=== PATIENT | male | born 1955 | race Caucasian/White ===

== ENCOUNTER 2016-04-22 15:21 | Inpatient (IN) | payer OTHER ==
[~2016-04-22] VITALS: Ht 170.2 cm; Wt 120.2 kg
[2016-04-22 15:21] VITALS: BP 166/109
[~2016-04-22 15:21] MED LIST: ABILIFY10 MG PO; ABILIFY20 MG PO; ANDROGEL1.62% TP; ATARAX HCL25 MG PO; COUMADIN3 MG PO; DEPAKOTE PO; DEPAKOTE500 MG PO; ELIQUIS5 MG PO; LANOXIN0.125 MG PO; LIPITOR20 MG PO; LOPRESSOR100 MG PO; LOTENSIN10 MG PO; LOTENSIN5 MG PO; MIRAPEX0.5 MG PO; NORVASC10 MG PO; ORETIC25 MG PO; PLAVIX75 MG PO; SPIRONOLACTONE25 M1 PO; SYMBICORT1 AE1 IH; TRAZADONE HYDR100 MG PO; TRAZODONE100 M1 PO; VISTARIL50 MG/ML IM
--- NOTE | 2016-04-22 15:29 | NUR ---
[place] [employer] AT BEDSIDE
--- NOTE | 2016-04-22 15:30 | NUR ---
61M BIBA FROM HOME C/O 5150 HOLD X TODAY; PER EMS, PT HAD SUICIDAL THOUGHTS PRIOR TO ARRIVAL, AND FELT DEPRESSED; PT DENIES ANY THOUGHTS OF SUICIDAL IDEATION, HURTING SELF, OR OTHERS AT THIS TIME. [place] [employer] ON SCENE. HX: HTN, POLYCYSTIC KIDNEY DISEASE, PARKINSON'S STAGE II, A.FIB, PACEMAKER W/ STENT; DENIES N/V/D; SKIN IS PINK/WARM/DRY; AAOX4 WITH EVEN AND STEADY GAIT; LUNGS CLEAR BL; HR EVEN AND REGULAR; PT DENIES ANY FEVER, CP, SOB, OR COUGH AT THIS TIME; PATIENT STATES PAIN OF 0/10 AT THIS TIME; VSS; PATIENT POSITIONED FOR COMFORT; HOB ELEVATED; BEDRAILS UP X2; BED DOWN. ER MD MADE AWARE OF PT STATUS.
[2016-04-22] MEDS ORDERED: LOTENSIN40 MG PO (15:43)
[2016-04-22] MEDS ORDERED: LASIX20 MG PO (15:45)
--- NOTE | 2016-04-22 16:00 | NUR ---
DR ROGEL AT BEDSIDE ASSESSING AAO PT
[2016-04-22] MEDS ORDERED: METOPROLOL SUC100 M1 PO (16:12)
--- NOTE | 2016-04-22 16:15 | NUR ---
AAO TAKEN TO CT VIA WHEEL CHAIR BY TECH
[2016-04-22] MEDS ORDERED: AMIODARONE HCL100 MG PO (16:24)
[2016-04-22] MEDS ORDERED: SYMBICORT1 AE1 IH (16:24)
[2016-04-22] MEDS ORDERED: NITROSTAT0.4 M1 SL (16:24)
[2016-04-22] MEDS ORDERED: SINEMET 25/1001 TAB PO (16:24)
[2016-04-22] MEDS ORDERED: FLOVENT HF44 MCG/ACT INH (16:24)
[2016-04-22] MEDS ORDERED: CARDIZEM120 M2 PO (16:24)
[2016-04-22] MEDS ORDERED: LIPITOR20 MG PO (16:24)
[2016-04-22] MEDS ORDERED: ATIVAN0.5 MG PO (16:24)
--- NOTE | 2016-04-22 18:57 | NUR ---
SNACK PROVIDED TO ALERT COOPERATIVE PT
--- NOTE | 2016-04-22 19:12 | NUR ---
DR. ROGEL CLEARED PT. MEDICALLY
--- NOTE | 2016-04-22 19:13 | NUR ---
REPORT TO MARC LUCIA
[2016-04-22] MEDS ORDERED: LORazepam 2 MG/ML VIAL IVP PRN (19:35)
[2016-04-22] MEDS ORDERED: MORPHINE SULFATE 2 MG/ML SYR IVP PRN (19:35)
[2016-04-22] MEDS ORDERED: ONDANSETRON 4 MG/2 ML VIAL IVP PRN (19:35)
--- NOTE | 2016-04-22 19:49 | NUR ---
PSYCHOLOGIST DR. CONROY AT PATIENT BEDSIDE.
--- NOTE | 2016-04-22 20:45 | NUR ---
RECEIVED PT FROM ER VIA GURNEY ACCOMPANIED BY RN AND EMT. PT IS AWAKE, ALERT, ORIENTEDX4. ATTACHED TO INTERACTIVE VIDEO TECHNICIAN, PULSE OXIMETER. PACEMAKER AT LEFT UPPER CHEST WALL. PT VOIDED FREELY, 300ML CLEAR YELLOW URINE USING A URINAL. PT IS COOPERATIVE. NO SIGNS OF DISTRESS AT THIS TIME. PT DENIES KILLING OR HURTING HIMSELF OR OTHERS. NOTED TO HAVE (+1) PITTING EDEMA BOTH UPPER AND LOWER EXTREMITIES. SKIN IS INTACT AT THIS TIME. BED IN LOW POSITION. SAFETY MEASURE ENSURE. ON CLOSE OBSERVATION, ON 5150 HOLD. CALL LIGHT WITHIN REACH. WILL CONTINUE TO MONITOR.
--- NOTE | 2016-04-22 20:50 | NUR ---
PATIENT REPORT GIVEN TO ACT ENGLISH TUTOR CLARIZE.
[2016-04-22 20:55] VITALS: BP 140/82
--- NOTE | 2016-04-22 20:55 | NUR ---
Patient will be admitted to care of DR. STAPLES. Admited to ICU. Will go to room BED 3. Belongings list completed. Report to CLARIZE.
[2016-04-22] MEDS ORDERED: FLUTICASONE PROPIONATE 100 MCG/ACTUATION INH IH PRN (21:20)
--- NOTE | 2016-04-22 21:35 | NUR ---
PT REQUESTED FOR A SANDWICH, ESTHETICIAN MAKEUP ARTIST NOTIFIED AND PT PROVIDED WITH SANDWICH AND SNACKS. PT EATING AT THIS TIME.
[2016-04-22] MEDS ORDERED: COMMUNICATION ORDER MC PRN (21:45)
--- NOTE | 2016-04-22 21:50 | NUR ---
RECEIVED REPORT FROM ANTONIO TRAN. FULL CODE, ON PROSTHETIC AIDES TEACHER. AWAKE, ALERT, ORIENTEDX4. WITH PACEMAKER ON LEFT UPPER CHEST WALL. BOTH LOWER AND UPPER EXTREMITIES WITH PITTING EDEMA +1 BUT AMBULATORY. ABLE TO FED HIMSELF. SKIN INTACT. PERIPHERAL IV G22 ON RIGHT HAND FLUSHED AND INTACT. 5150 HOLD.
--- NOTE | 2016-04-22 21:50 | NUR ---
REPORT GIVEN TO MARC LUCIA FOR CONTINUITY OF CARE.
[2016-04-22 22:00] VITALS: BP 129/91
--- NOTE | 2016-04-22 22:00 | NUR ---
FOR NEPHRO CONSULT. DR. THOMPSON CAME IN, SEEN AND EXAMINED THE PATIENT AND TOOK HISTORY AT THE BEDSIDE.
[2016-04-22] MEDS ORDERED: LORazepam 0.5 MG TAB PO SCH (23:00)
[2016-04-23] VITALS (12 sets, daily range): BP systolic 114–179; BP diastolic 76–108
--- NOTE | 2016-04-23 00:10 | NUR ---
VITALLY STABLE. SLEEPING AT THIS TIME. CALL LIGHT AT BEDSIDE. CLOSE OBSERVATION. NO SIGNS OF DISTRESS AT THIS MOMENT.
--- NOTE | 2016-04-23 03:13 | NUR ---
REPOSITION PATIENT. NO RESPIRATORY DISTRESS AT THIS TIME. SLEEPING COMFORTABLY, VITALLY STABLE. BED IN LOW POSITION.
--- NOTE | 2016-04-23 04:23 | NUR ---
CAKE ICER AT THE BEDSIDE FOR MORNING LABS. PATIENT IS COOPERATIVE. SAFE ENVIRONMENT MAINTAINED. NO SUICIDAL IDEATION.
--- NOTE | 2016-04-23 05:08 | NUR ---
ASKED IF THE PATIENT WANTS TO BE CLEANED, PATIENT REFUSED AND VERBALIZED HE WANTED TO GO BACK TO SLEEP AT THIS TIME.
--- NOTE | 2016-04-23 07:11 | NUR ---
PATIENT REPORT GIVEN TO DAY SHIFT MARC MOHR FOR CONTINUITY OF CARE. VITALLY STABLE, NO SIGNS OF DISTRESS OR DISCOMFORT AT THIS TIME.
--- NOTE | 2016-04-23 07:15 | NUR ---
RECEIVED REPORT FROM MARC LUCIA. NO SIGNS OF ACUTE DISTRESS AT THIS TIME, NO C/O PAIN. PT IS AAOX4. PT IS ON ROOM AIR. PACEMAKER TO LEFT UPPER CHEST. IV TO RIGHT HAND #22 PATENT AND INTACT. SKIN IS INTACT. EDEMA NOTED TO BILATERAL LOWER EXTREMITIES, PITTING +1. SAFETY PRECAUTIONS IN PLACE WITH BED IN LOWEST POSITION AND SIDE RAILS UP, CALL LIGHT WITHIN REACH. PT IS CURRENTLY A FIB ON THE MONITOR, PACED. WILL CONTINUE TO MONITOR.
--- NOTE | 2016-04-23 07:49 | NUR ---
PT UP AND EATING BREAKFAST WITH NO ISSUES
[2016-04-23] MEDS: CARBIDOPA/LEVODOPA 25/100 MG 1 TAB PO SCH ×3 (08:05→16:28)
[2016-04-23] MEDS: AMIODARONE 200 MG TAB PO SCH (08:06)
[2016-04-23] MEDS: LORazepam 0.5 MG TAB PO SCH ×2 (08:06→21:12)
[2016-04-23] MEDS: ATORVASTATIN 20 MG TAB PO SCH (08:06)
[2016-04-23] MEDS: DIVALPROEX 500 MG TABEC PO SCH ×2 (08:06→21:11)
[2016-04-23] MEDS: FUROSEMIDE 20 MG TAB PO SCH (08:07)
[2016-04-23] MEDS: SPIRONOLACTONE 25 MG TAB PO SCH (08:07)
[2016-04-23] MEDS: BENAZEPRIL 20 MG TAB PO SCH (08:07)
[2016-04-23] MEDS: DILTIAZEM 120 MG CAPER PO SCH (08:08)
[2016-04-23] MEDS: ARIPiprazole 10 MG TAB PO SCH (08:12)
[2016-04-23] MEDS: METOPROLOL SUCCINATE 50 MG TABER PO SCH (08:13)
--- NOTE | 2016-04-23 08:14 | NUR ---
CHECKED BP: 150/102, HR: 78, POTASSIUM: 4.2. ADMINISTERED MEDICATION ORDERED. PT TOLERATED WELL.
--- NOTE | 2016-04-23 08:20 | NUR ---
LOVENOX NOT ADMINISTERED PT HAS PENDING ORDER FOR ELIQUIS. WILL CLARIFY WITH DR. STAPLES
--- NOTE | 2016-04-23 08:25 | NUR ---
RECEIVED CLARIFICATION REGARDING LOVENOX FROM DR. THOMPSON. PER DR. THOMPSON, CONTINUE ELIQUIS AND START PT ON SCD'S.
--- NOTE | 2016-04-23 08:32 | NUR ---
PT HAD LARGE BOWEL MOVEMENT USING BEDSIDE COMMODE. SOFT AND BROWN IN COLOR. PROVIDED HYGIENE CARE. CALL LIGHT WITHIN REACH.
[2016-04-23] MEDS: APIXABAN 2.5 MG TAB PO SCH ×2 (08:51→21:14)
[2016-04-23] MEDS ORDERED: ENOXAPARIN 30 MG/0.3 ML SYR SUBQ SCH (09:00)
--- NOTE | 2016-04-23 10:19 | NUR ---
CHECKED ON PT. RESTING AT THIS TIME, AROUSABLE. CALL LIGHT WITHIN REACH
--- NOTE | 2016-04-23 11:14 | NUR ---
PT TOLERATED MEDS WELL.
--- NOTE | 2016-04-23 11:23 | NUR ---
RECEIVED REPORT FROM MARC JON. AWAITING ARRIVAL OF PT TO UNIT.
--- NOTE | 2016-04-23 12:01 | NUR ---
PT HAD 400 ML OF CLEAR YELLOW URINE OUTPUT
--- NOTE | 2016-04-23 12:29 | NUR ---
DR. STAPLES IN TO SEE PT. WILL FOLLOW UP ON ORDERS.
--- NOTE | 2016-04-23 13:30 | NUR ---
RECEIVED A PHONE CALL FROM A CASE MANAGEMENT NAME ANGELA FROM [facility],HER PHONE # [phone]. FAXED THE PATIENT'S INFORMATION TO ANGELA Betts # [phone] PER HER REQUESTED. SHE WILL TRY TO FIND THE INTAKE PSYCH FACILITY FOR THE PATIENT.
--- NOTE | 2016-04-23 14:05 | NUR ---
CHECKED ON PT. RESTING AT THIS TIME, AROUSABLE. CALL LIGHT WITHIN REACH.
--- NOTE | 2016-04-23 15:20 | NUR ---
RECEIVED A CALL FROM ANGELA Betts OF [facility],WHICH SHE STATES THAT SHE TRIED TO GET A BED FOR THE PATIENT AT [facility],BUT THEY DO NOT HAVE A BED TODAY. PATIENT WAS INFORMED.
--- NOTE | 2016-04-23 15:21 | NUR ---
CHECKED ON PT. ALL NEEDS MET AT THIS TIME. CALL LIGHT WITHIN REACH.
--- NOTE | 2016-04-23 15:44 | NUR ---
RECHECKED BP: 112/49. WILL CONTINUE TO MONITOR. Addendum: 04/23/16 at 1607 by Kaitlin Walls RN CHARTED ON WRONG PT
--- NOTE | 2016-04-23 16:07 | NUR ---
PT HAD 450 ML OF CLEAR YELLOW URINE OUTPUT
--- NOTE | 2016-04-23 16:29 | NUR ---
PT TOLERATED MEDS WELL
--- NOTE | 2016-04-23 16:30 | NUR ---
CALLED [facility] # [phone] FOR INTAKE PSYCH ADMISSION AND SPOKE TO MARIAMA ,WHICH SHE STATES THAT THERE IS NO BED TODAY.
--- NOTE | 2016-04-23 16:45 | NUR ---
CALLED [facility] FOR A BED. SPOKE TO THE EMBLEM CUTTER WHICH SHE SAID THAT THERE IS NO BED. PATIENT WAS INFORMED ABOUT THAT WE ARE UNABLE TO FIND THE BED FOR HIM TODAY AND WE WILL TRY AGAIN TOMORROW.
--- NOTE | 2016-04-23 18:07 | NUR ---
PT UP AND EATING DINNER WITH NO ISSUES.
--- NOTE | 2016-04-23 19:23 | NUR ---
ENDORSED CARE TO MARC LUCIA. PT IN STABLE CONDITION.
--- NOTE | 2016-04-23 19:23 | NUR ---
RECEIVED PATIENT REPORT FROM DAY SHIFT RN FANI. FULL CODE, ON FORGING PRESS LEVER TENDER, ON ROOM AIR. PATIENT SLEEPING AT THIS TIME BUT EASILY AROUSABLE. NOT ON RESPIRATORY DISTRESS OR DISCOMFORT AT THIS TIME. PERIPHERAL IV G22 ON RIGHT HAND SALINE LOCK. SCD ON BOTH LEGS. PITTING EDEMA +1 BLE. BED IN LOW POSITION. SUICIDAL PRECAUTION.
--- NOTE | 2016-04-23 21:00 | NUR ---
PATIENT REQUESTED FOR SNACK. FOOD TOLERATED, NO N/V NOTED.
[2016-04-23] MEDS: traZODone 50 MG TAB PO SCH (21:12)
--- NOTE | 2016-04-23 22:27 | NUR ---
PATIENT SLEEPING COMFORTABLY, NO SIGNS OF DISTRESS OR DISCOMFORT AT THIS TIME. SUICIDE PRECAUTION. TURNS ON BED BY HIMSELF.
--- NOTE | 2016-04-23 22:50 | NUR ---
SEEN BY DR. THOMPSON AT BEDSIDE. LABS AND VS REVIEWED. INFORMED THAT PATIENT MIGHT BE TRANSFERRED TO [facility] ONCE BED IS AVAILABLE. NO ORDERS MADE.
--- NOTE | 2016-04-23 23:59 | NUR ---
PATIENT SLEEPING, NO SIGNS OF RESPIRATORY DISTRESS OR DISCOMFORT AT THIS TIME. SUICIDE PRECAUTION. PATIENT TURNS BY HIMSELF ON BED.
[2016-04-24] VITALS (11 sets, daily range): BP systolic 113–152; BP diastolic 68–96
--- NOTE | 2016-04-24 02:16 | NUR ---
EASILY AROUSABLE TO VOICE. SLEEPING AT THIS TIME. REPOSITIONED PATIENT. SUICIDE PRECAUTION.
--- NOTE | 2016-04-24 03:29 | NUR ---
PATIENT HAD HIS MORNING CARE DONE HIMSELF WITH SPONGE BATH. BRUSHED HIS TEETH. ALL LINENS, GOWN, SOCKS CHANGED. MORNING CARE TOLERATED. NO SIGNS OF DISTRESS OR DISCOMFORT NOTED. HE READ THE PATIENT'S INSTRUCTIONS PROVIDED.
--- NOTE | 2016-04-24 06:00 | NUR ---
PATIENT ASKED FOR CRACKERS AND JUICE. FED HIMSELF TOLERATED. NO N/V NOTED.
--- NOTE | 2016-04-24 07:20 | NUR ---
PATIENT REPORT GIVEN TO DAY SHIFT RN DONNA FOR CONTINUITY OF CARE.
[2016-04-24] MEDS ORDERED: PROBIOTIC SCREEN 1 EA MISC MC PRN (07:35)
[2016-04-24] MEDS: CARBIDOPA/LEVODOPA 25/100 MG 1 TAB PO SCH ×3 (07:57→17:04)
--- NOTE | 2016-04-24 08:00 | NUR ---
INITIAL SHIFT ASSESSMENT DONE. AAOX4. NO C/O PAIN OR DYSPNEA. O2 SAT 91-95% ON ROOM AIR. 100% PACED ON MONITOR. SBP IN 120'S-140'S. HOB ELEVATED. GIVEN BREAKFAST TRAY. UPDATED OF PLAN OF CARE. WILL CONTINUE TO MONITOR.
[2016-04-24] MEDS: ARIPiprazole 10 MG TAB PO SCH (08:46)
[2016-04-24] MEDS: SPIRONOLACTONE 25 MG TAB PO SCH (08:47)
[2016-04-24] MEDS: DIVALPROEX 500 MG TABEC PO SCH ×2 (08:47→20:50)
[2016-04-24] MEDS: LORazepam 0.5 MG TAB PO SCH ×2 (08:48→20:51)
[2016-04-24] MEDS: BENAZEPRIL 20 MG TAB PO SCH (08:48)
[2016-04-24] MEDS: AMIODARONE 200 MG TAB PO SCH (08:48)
[2016-04-24] MEDS: ATORVASTATIN 20 MG TAB PO SCH (08:48)
[2016-04-24] MEDS: FUROSEMIDE 20 MG TAB PO SCH (08:49)
[2016-04-24] MEDS: METOPROLOL SUCCINATE 50 MG TABER PO SCH (08:49)
[2016-04-24] MEDS: APIXABAN 2.5 MG TAB PO SCH ×2 (08:51→20:56)
[2016-04-24] MEDS: DILTIAZEM 120 MG CAPER PO SCH (08:53)
[2016-04-24] MEDS ORDERED: DIGOXIN 0.125 MG TAB PO SCH (09:00)
--- NOTE | 2016-04-24 09:08 | NUR ---
PATIENT HAS BEEN SCREENED AND CATEGORIZED HIGH NUTRITION RISK. PATIENT WILL BE SEEN WITHIN 1-2 DAYS OF ADMISSION. 04/23/16-04/24/[address]
--- NOTE | 2016-04-24 10:00 | NUR ---
SLEEPING AT THIS TIME BUT EASILY AROUSABLE. NO C/O PAIN OR DYSPNEA. O2 SAT 91-95% ON ROOM AIR. 100% PACED ON MONITOR. SBP IN 120'S-150. HOB ELEVATED. WILL CONTINUE TO MONITOR.
--- NOTE | 2016-04-24 10:07 | NUR ---
SS NOTE: SENT PSYCH PLACEMENT INQUIRIES TO: - [facility] - [facility]
--- NOTE | 2016-04-24 10:32 | NUR ---
CM NOTE INITIAL REVIEW [facility] / FAX# [phone], ATTN: MAISHA #[phone]
--- NOTE | 2016-04-24 12:00 | NUR ---
REASSESSMENT DONE. AAOX4. NO C/O PAIN OR DYSPNEA. O2 SAT 92-96% ON ROOM AIR. 100% PACED ON MONITOR. SBP IN 120'S-140'S. SITTING ON THE EDGE OF THE BED AT THIS TIME. GIVEN LUNCH TRAY. UPDATED OF PLAN OF CARE. WILL CONTINUE TO MONITOR.
--- NOTE | 2016-04-24 14:00 | NUR ---
RESTING IN BED. NO C/O PAIN OR DYSPNEA. O2 SAT 92-96% ON ROOM AIR. 100% PACED ON MONITOR. SBP IN 140'S-150'S. NO ECTOPY NOTED. HOB ELEVATED. WILL CONTINUE TO MONITOR.
--- NOTE | 2016-04-24 14:15 | NUR ---
04/24/16 RD INITIAL ASSESSMENT COMPLETED PLEASE REFER TO NUTRITION ASSESSMENT UNDER CARE ACTIVITY FOR ESTIMATED NUTRITIONAL NEEDS. RD RECOMMENDATIONS: 1. RECOMMEND RENAL DIET D/T PT WITH PMH OF CKD AND ELEVATED BUN AND CREATININE LEVELS. --NOTE PT IS MEETING 100% OF PT ESTIMATED KCAL AND PROTEIN NEEDS WITH AN AVG PO INTAKE OF 100%. --NOTE RD SPOKE WITH RN ABOUT CHANGING TO RENAL DIET, RN ACKNOWLEDGED. 2. RD WILL F/U 7 DAYS; LOW RISK. DIALLO DRUMMOND, RD
--- NOTE | 2016-04-24 14:16 | NUR ---
SS NOTE: I SPOKE WITH KEN FROM [facility] AND SHE REQUESTED THAT PT'S INFORMATION BE RESENT. I RESENT THE INFORMATION, RECEIVED FAX CONFIRMATION. PER ANN FROM [facility], NO ADULT BEDS AVAILABLE PER MANDI FROM [facility], PT WAS DECLINED DUE TO HIGH MEDICAL ACUITY PER YANNICK FROM [facility], PT'S INFORMATION IS PENDING REVIEW BUT THEY DO NOT HAVE ANY BEDS AVAILABLE AT THIS TIME. Addendum: 04/24/16 at 1420 by Violeta Walls SS PER AYE FROM [facility], NO BEDS AVAILABLE
--- NOTE | 2016-04-24 14:33 | NUR ---
CM NOTE PER NARAYAN FERRERA FOR [facility], PSYCH CARVE-OUT TO [facility] #[phone]. TRANSPORT IS CARVED-OUT TO [facility].
--- NOTE | 2016-04-24 14:34 | NUR ---
SS NOTE: I SPOKE TO ERMA FROM [facility] ([phone]) AND SHE REQUESTED THAT PT'S INFORMATION BE SENT TO [phone] SO THAT THEY CAN WORK ON PSYCH PLACEMENT. THE REQUESTED INFORMATION WAS SENT, RECEIVED FAX CONFIRMATION. Addendum: 04/24/16 at 1446 by Violeta Walls SS CORRECT FAX NUMBER: [phone]
--- NOTE | 2016-04-24 15:27 | NUR ---
SS NOTE: PER ANNELISE FROM [facility], THEY ARE UNABLE TO ACCEPT PT DUE TO HIGH MEDICAL ACUITY.
--- NOTE | 2016-04-24 15:43 | NUR ---
SS NOTE: PER RANDALL FROM [facility], THEY DO NOT MANAGE THIS PT FOR [facility]. HE RECOMMENDED THAT STEWART LERNER CM OF BEHAVIOR HEALTH AT [facility] BE CONTACTED FOR PLACEMENT. MESSAGE LEFT FOR STEWART LERNER ([phone]) REGARDING PSYCH PLACEMENT FOR PT
--- NOTE | 2016-04-24 16:00 | NUR ---
REASSESSMENT DONE. AAOX4. NO C/O PAIN OR DYSPNEA. O2 SAT 92-98% ON ROOM AIR. 100% PACED ON MONITOR. SBP IN 120'S-140'S. NO ECTOPY NOTED. HOB ELEVATED. UPDATED OF PLAN OF CARE. WILL CONTINUE TO MONITOR.
--- NOTE | 2016-04-24 17:40 | NUR ---
SITTING ON TH EDGE OF THE BED. GIVEN DINNER TRAY.
--- NOTE | 2016-04-24 18:10 | NUR ---
RESTING IN BED, WATCHING TV. NO C/O PAIN OR DYSPNEA. O2 SAT 94-96% ON ROOM AIR. 100% PACED ON MONITOR. SBP IN 130'S-140'S. NO ECTOPY NOTED. HOB ELEVATED. WILL CONTINUE TO MONITOR.
--- NOTE | 2016-04-24 19:00 | NUR ---
REPORT GIVEN TO INCOMING CREEL HAND RN, RN JANN.
--- NOTE | 2016-04-24 19:10 | NUR ---
RECEIVED REPORT FROM DONNA TRAN. PATIENT IS SLEEPING IN BED, WITH BREATHING AND UNLABORED. PATIENT CAN BE AROUSED BY NAME. BREATH SOUNDS ARE CLEAR UPON AUSCULTATION AND THERE ARE ACTIVE BOWEL SOUNDS. THERE IS A #22 IN THE RIGHT HAND SALINE LOCKED. SITE IS DRY AND INTACT. VITAL SIGNS ARE WNL WITH NO REPORTS OF PAIN OR DISCOMFORT AT THIS TIME. INITIAL ASSESSMENT COMPLETED. HOB AT 30 DEGREES WITH BED IN LOW POSITION. CONTINUE TO MONITOR PATIENT.
--- NOTE | 2016-04-24 20:22 | NUR ---
PATIENT REQUESTED CRACKERS AND JUICE. PROVIDED PATIENT WITH 1 PACKET OF KALIN CRACKERS AND 1 BOX OF APPLE JUICE. PATIENT HAS GOOD APPETITE AND TOLERATED WELL. CONTINUE TO MONITOR.
[2016-04-24] MEDS: traZODone 50 MG TAB PO SCH (20:51)
--- NOTE | 2016-04-24 20:57 | NUR ---
TOLERATED SCHEDULED MEDICATION ADMINISTRATION. NO SIGNS OF SOB NOTED. PATIENT'S NEEDS MET AT THIS TIME. CONTINUE TO MONITOR PATIENT. Addendum: 04/24/16 at 2249 by Ciera Bojorquez RN EXPLAINED INDICATIONS AND BENEFITS OF SCDS FOR VTE PROPHYLAXIS TO PATIENT. PATIENT REQUESTED TO NOT WEAR SCDS AT THIS TIME AND SAID IT WOULD BE OK TO REAPPLY IN THE MORNING.
--- NOTE | 2016-04-24 22:49 | NUR ---
PATIENT SLEEPING IN BED. NO SIGNS OF SOB NOTED. HOB AT 30 DEGREES WITH BED IN LOW POSITION. CONTINUE TO MONITOR PATIENT.
[2016-04-25] VITALS: BP 124/85
--- NOTE | 2016-04-25 01:25 | NUR ---
PATIENT VOIDED IN URINAL. 550ML OF CLEAR YELLOW URINE OUTPUT NOTED. CONTINUE TO MONITOR.
--- NOTE | 2016-04-25 01:28 | NUR ---
PATIENT REQUESTED SNACK. PROVIDED 1 PACK OF KALIN CRACKERS AND 1 BOX OF ORANGE JUICE. CONTINUE TO MONITOR PATIENT.
--- NOTE | 2016-04-25 01:39 | NUR ---
PATIENT REQUESTED BLANKET. FOLLOWED UP WITH PATIENT'S REQUEST. PATIENT'S NEEDS MET AT THIS TIME. CONTINUE TO MONITOR.
[2016-04-25 04:00] VITALS: BP 131/78
--- NOTE | 2016-04-25 04:14 | NUR ---
PATIENT SLEEPING IN BED. BREATHING IS EVEN AND UNLABORED. CONTINUE TO MONITOR.
--- NOTE | 2016-04-25 04:29 | NUR ---
HEAD CHARRER AT BEDSIDE FOR SCHEDULED LAB DRAWS.
--- NOTE | 2016-04-25 06:46 | NUR ---
PATIENT REQUESTED URINAL TO VOID. OUTPUT OF 300 ML OF CLEAR YELLOW URINE NOTED. PATIENT REQUESTED SNACK. PROVIDED 1 PACKET OF KALIN CRACKERS AND 1 BOX OF CRANBERRY JUICE. PATIENT'S NEEDS MET AT THIS TIME. CONTINUE TO MONITOR PATIENT.
--- NOTE | 2016-04-25 06:52 | NUR ---
PATIENT REQUESTED SUPPLIES TO PERFORM SELF MORNING CARE. PATIENT ABLE TO PERFORM SELF CARE. NO SIGNS OF SOB OR DISTRESS NOTED. CONTINUE TO MONITOR.
--- NOTE | 2016-04-25 07:15 | NUR ---
PATIENT RESTING IN BED WATCHING TV AND IS STABLE. ALL NEEDS ATTENDED TO DURING SHIFT. ENDORSED CONTINUITY OF CARE TO REECE TRAN.
--- NOTE | 2016-04-25 07:20 | NUR ---
received patient on bed.initial assessment done to patient .no co pain nor any discomfort. right hand 22 gauge .no signs of infiltration.paced rhythm.no suicidal ideation.will monitor.
[2016-04-25 08:00] VITALS: BP 135/73
[2016-04-25] MEDS: CARBIDOPA/LEVODOPA 25/100 MG 1 TAB PO SCH ×3 (08:20→16:16)
[2016-04-25] MEDS: APIXABAN 2.5 MG TAB PO SCH (08:20)
[2016-04-25] MEDS: DIVALPROEX 500 MG TABEC PO SCH (08:21)
[2016-04-25] MEDS: FUROSEMIDE 20 MG TAB PO SCH (08:21)
[2016-04-25] MEDS: ATORVASTATIN 20 MG TAB PO SCH (08:21)
[2016-04-25] MEDS: SPIRONOLACTONE 25 MG TAB PO SCH (08:22)
[2016-04-25] MEDS: BENAZEPRIL 20 MG TAB PO SCH (08:22)
[2016-04-25] MEDS: LORazepam 0.5 MG TAB PO SCH (08:22)
[2016-04-25] MEDS: AMIODARONE 200 MG TAB PO SCH (08:23)
[2016-04-25] MEDS: ARIPiprazole 10 MG TAB PO SCH (08:24)
[2016-04-25] MEDS: METOPROLOL SUCCINATE 50 MG TABER PO SCH (08:25)
[2016-04-25] MEDS: DILTIAZEM 120 MG CAPER PO SCH (08:38)
--- NOTE | 2016-04-25 09:45 | NUR ---
SS NOTE: RECEIVED A MESSAGE FROM STEWART LERNER AT [facility] AND SHE STATED THAT [facility] IS RESPONSIBLE FOR PT'S PSYCH PLACEMENT I SPOKE WITH YAIR VICK ([phone]) FROM [facility] BEH[facility]IORAL [facility] DEPT. AND HE STATED THAT HE WILL SEND OVER A LIST OF [facility] CONTRACTED PSYCH FACILITIES.
--- NOTE | 2016-04-25 10:30 | NUR ---
PER PT., HIS HOLD WILL IN A FEW HOURS AND THAT HE PREFERS TO GO HOME INSTEAD OF GOING TO A PSYCH.HOSPITAL. DR. STAPLES AWARE. MESSAGE LEFT WITH DR. BENEDICT TO RE EVAL. PT.
[2016-04-25 12:00] VITALS: BP 106/46
--- NOTE | 2016-04-25 13:06 | NUR ---
left a message to dr edwards regarding reevaluation .also faxed face sheet.
[2016-04-25 16:00] VITALS: BP 118/76
--- NOTE | 2016-04-25 16:15 | NUR ---
DR. WHITNEY HERE TO SEE AND EXAMINE PT.
--- NOTE | 2016-04-25 16:40 | NUR ---
PER DR. WHITNEY PT IS OFF 4250 AND IS CLEAR TO BE DC TO HOME. DR. STAPLES PAGED THROUGH HIS OFFICE.
--- NOTE | 2016-04-25 17:00 | NUR ---
HEP LOCK ON RT HAND DC'D.
--- NOTE | 2016-04-25 17:10 | NUR ---
DISCHARGE INSTRUCTIONS GIVEN. PT. STATES HE JUST LEAVES NEARBY, CAN WALK HOME. HE DOES NOT NEED ANYBODY TO DRIVE HIM. DISCHARGED HOME. AMBULATORY. GAIT. STEADY. DENIES ANY DIZZINESS/DISCOMFORTS.
== END 2016-04-25 17:10 | disposition designated cancer center or children's hospital (05) | DRG 885 ==
LOC: MED 15:21 → MIC 19:41
PROVIDERS: ADMIT Internal Medicine Pulmonary Disease; ATTEND Internal Medicine Pulmonary Disease
DX: F31.5 Bipolar disorder, current episode depressed, severe, with psychotic features (principal); Q61.3 Polycystic kidney, unspecified; R45.851 Suicidal ideations; Z87.81 Personal history of (healed) traumatic fracture; I48.91 Unspecified atrial fibrillation; G20 Parkinson's disease; J45.909 Unspecified asthma, uncomplicated; Z98.61 Coronary angioplasty status; Z79.01 Long term (current) use of anticoagulants; Z95.0 Presence of cardiac pacemaker; E78.5 Hyperlipidemia, unspecified; N18.3 Chronic kidney disease, stage 3 (moderate); I25.10 Atherosclerotic heart disease of native coronary artery without angina pectoris; Z82.49 Family history of ischemic heart disease and other diseases of the circulatory system; Z79.899 Other long term (current) drug therapy; I12.9 Hypertensive chronic kidney disease with stage 1 through stage 4 chronic kidney disease, or unspecified chronic kidney disease

== ENCOUNTER 2016-05-28 11:51 | Inpatient (IN) | payer OTHER ==
[~2016-05-28] VITALS: Ht 170.2 cm; Wt 117.9 kg
[~2016-05-28 11:51] MED LIST changes: +AMIODARONE HCL100 MG PO; +ATIVAN0.5 MG PO; +CARDIZEM120 M2 PO; +FLOVENT HF44 MCG/ACT INH; +LASIX20 MG PO; +LOTENSIN40 MG PO; +METOPROLOL SUC100 M1 PO; +NITROSTAT0.4 M1 SL; +SINEMET 25/1001 TAB PO
[2016-05-28 11:57] VITALS: BP 110/69
[2016-05-28] MEDS ORDERED: ALBUTEROL SULFATE/IPRATROPIU 3 ML SOL IH ONE ×3 (12:05→14:05)
--- NOTE | 2016-05-28 12:06 | NUR ---
TO RADIOLOGY VIA WHEEL CHAIR
--- NOTE | 2016-05-28 12:43 | NUR ---
61/M TO ED WITH C/O COUGH X5 DAYS. DRY NON PRODUCTIVE COUGH. DENIES N/V/D. WHEEZES HEARD BILAT UPON INSP. AND EXP. DENIES PAIN. AAOX4. VSS. NO SIGNS OF DISTRESS.
[2016-05-28] MEDS ORDERED: cefTRIAXone 1,000 MG VIAL ONE (13:05)
--- NOTE | 2016-05-28 14:05 | NUR ---
Patient appears to be resting comfortably in bed. Vital Signs within normal limits. Respirations even and unlabored.
[2016-05-28] MEDS ORDERED: MORPHINE SULFATE 2 MG/ML SYR IVP PRN (14:30)
[2016-05-28] MEDS ORDERED: HYDROcodone/APAP 7.5/325 MG 1 TAB PO PRN (14:30)
[2016-05-28] MEDS ORDERED: ONDANSETRON 4 MG/2 ML VIAL IVP PRN (14:30)
[2016-05-28] MEDS ORDERED: methylPREDNISolone SS 40 MG in WATER STERILE 1 ML IV SCH (14:45)
[2016-05-28] MEDS ORDERED: ALBUTEROL SULFATE/IPRATROPIU 3 ML SOL IH PRN (14:45)
[2016-05-28] MEDS ORDERED: ACETAMINOPHEN 325 MG TAB PO PRN (14:50)
--- NOTE | 2016-05-28 14:58 | NUR ---
Patient will be admitted to care of DR SANTOS. Admited to TELE. Will go to room 110A. Belongings list completed. Report to MARC FAIR.
[2016-05-28] MEDS ORDERED: methylPREDNISolone SS 125 MG/2 ML VIAL IVP SCH (15:00)
[2016-05-28 15:15] VITALS: BP 132/65
--- NOTE | 2016-05-28 15:15 | NUR ---
Admitted from ER, with chief complaint of COUGH, DX ACUTE ASTHMATIC BRONCHITIS. 61 y/o , Male, Cooperative, AOX4, PT ON HIGH FOWLERS, ABLE TO VERBALIZE NEEDS, ABLE TO AMBULATE WITH ASSIST. PT ON CEMENT PAVER, PACEMAKER NOTED. ON 4L NC. PT TACHYPNIC, PT STATES SLIGHT SHORTNESS OF BREATH. O2 SAT 95%. BLE EDEMA NOTED. FEVER NOTED, COOLING MEASURES IN PLACE, WILL ADMINISTER APAP ORDERED. IV ACCESS ASYMPTOMATIC, PATENT AND INTACT. IVF INFUSING WELL. REVIEWED AND DISCUSSED PLAN OF CARE WITH PT. PT VERBALIZES UNDERSTANDING. SAFETY MEASURES IN PLACE. CALL LIGHT WITHIN REACH. oriented to call light, bed, phone,television, bathroom, smoking policy, visiting hours, procedures, ID bracelet on. Belongings list checked.
[2016-05-28] MEDS: NACL 0.9% 1,000 ML IV SCH (15:50)
[2016-05-28] MEDS ORDERED: LEVOFLOXACIN 750 MG/D5W PREMIX 150 ML IV SCH (16:00)
[2016-05-28] MEDS ORDERED: DILTIAZEM 30 MG TAB PO SCH (16:25)
[2016-05-28] MEDS ORDERED: guaiFENesin DM 200/20 MG-10 ML 10 ML UDC PO PRN (16:35)
[2016-05-28] MEDS: CARBIDOPA/LEVODOPA 25/100 MG 1 TAB PO SCH (17:52)
[2016-05-28] MEDS: PIPERACILLIN/TAZOBACTAM 3.375 GM in DEXTROSE 5% 50 ML IV SCH (18:00)
[2016-05-28] MEDS ORDERED: PIPERACILLIN/TAZOBACTAM 3.375 GM VIAL IV ONE (18:22)
--- NOTE | 2016-05-28 18:24 | NUR ---
[facility] CALLED REGARDING PACEMAKER. SHARAN WILL BE PAGED AND IN CONTACT REGARDING INTERROGATION.
--- NOTE | 2016-05-28 19:21 | NUR ---
ENDORSED PLAN OF CARE TO NIGHT NURSE. CONDITION STABLE.
--- NOTE | 2016-05-28 19:22 | NUR ---
RECEIVED PT IN STABLE CONDITION FROM MARC FAIR. NO SOB, NO SIGNS OF DISTRESS. HR TACHY, OTHER VS WNL. PT IS AOX4, AMBULATES WITH ASSIST. PT ON 4L O2 NC. IV TO RT AC 22G INTACT, INFILTRATED. DC IV, WILL START NEW IV. SKIN IS INTACT, PT DENIES PAIN OR SOB AT THIS TIME. EDUCATED PT THAT WE NEED SPUTUM AND URINE SAMPLES, PT VERBALIZED UNDERSTANDING. PLAN OF CARE DISCUSSED WITH PT. SAFETY MEASURES IN PLACE. CALL LIGHT WITHIN REACH. WILL CONTINUE TO MONITOR.
[2016-05-28] MEDS: ALBUTEROL SULFATE/IPRATROPIU 3 ML SOL IH SCH (19:23)
[2016-05-28] MEDS: BUDESONIDE 0.25 MG/2 ML NEBU INH SCH (19:23)
[2016-05-28 20:00] VITALS: BP 126/71
[2016-05-28] MEDS: DIVALPROEX 500 MG TABEC PO SCH (20:31)
[2016-05-28] MEDS: traZODone 50 MG TAB PO SCH (20:31)
[2016-05-28] MEDS: ATORVASTATIN 20 MG TAB PO SCH (20:31)
--- NOTE | 2016-05-28 20:31 | NUR ---
PT TOLERATED DUE MEDS WELL. NO SOB, NO SIGNS OF DISTRESS. PT ON 4L O2 NC. PT DENIES PAIN AT THIS TIME. PLAN OF CARE DISCUSSED WITH PT. SAFETY MEASURES IN PLACE. CALL LIGHT WITHIN REACH. WILL CONTINUE TO MONITOR.
[2016-05-28] MEDS: APIXABAN 2.5 MG TAB PO SCH (20:32)
--- NOTE | 2016-05-28 20:57 | NUR ---
1999 sputum was collected by rn and taken to lab
--- NOTE | 2016-05-28 23:45 | NUR ---
STARTED NEW IV TO LT HAND 22G PATENT, ASYMPTOMATIC, INTACT, IVF RUNNING. PT TOLERATED WELL. VS STABLE. NO SOB, NO SIGNS OF DISTRESS. PT ON 4L O2 NC. PT DENIES PAIN AT THIS TIME. PLAN OF CARE DISCUSSED WITH PT. SAFETY MEASURES IN PLACE. CALL LIGHT WITHIN REACH. WILL CONTINUE TO MONITOR.
[2016-05-29] VITALS: BP 112/65
[2016-05-29] MEDS: ALBUTEROL SULFATE/IPRATROPIU 3 ML SOL IH SCH ×4 (00:06→19:00)
[2016-05-29] MEDS ORDERED: PIPERACILLIN/TAZOBACTAM 3.375 GM VIAL IV ONE ×2 (00:20→05:02)
[2016-05-29] MEDS: PIPERACILLIN/TAZOBACTAM 3.375 GM in DEXTROSE 5% 50 ML IV SCH ×2 (00:39→05:04)
--- NOTE | 2016-05-29 02:20 | NUR ---
PT ASLEEP. NO SOB, NO SIGNS OF DISTRESS. PT ON 4L O2 NC. IV SITE ASYMPTOMATIC, INTACT, PATENT, IVF RUNNING. SAFETY MEASURES IN PLACE. CALL LIGHT WITHIN REACH. WILL CONTINUE TO MONITOR.
[2016-05-29 04:00] VITALS: BP 92/58
--- NOTE | 2016-05-29 04:16 | NUR ---
VS STABLE. NO SOB, NO SIGNS OF DISTRESS. PT ON 4L O2 NC. PT DENIES PAIN AT THIS TIME. IV SITE ASYMPTOMATIC, INTACT, PATENT, IVF RUNNING. PLAN OF CARE DISCUSSED WITH PT. SAFETY MEASURES IN PLACE. CALL LIGHT WITHIN REACH. WILL CONTINUE TO MONITOR.
--- NOTE | 2016-05-29 05:00 | NUR ---
PT UNABLE TO VOID SINCE ARRIVING AT HOSPITAL YESTERDAY, WILL ENDORSE TO AM SHIFT TO MAKE MD AWARE.
[2016-05-29] MEDS: methylPREDNISolone SS 40 MG/ML VIAL IVP SCH ×3 (05:05→21:24)
--- NOTE | 2016-05-29 06:47 | NUR ---
PERFORMED BLADDER SCAN, >178 ML RESIDUAL NOTED IN THE BLADDER. NO CALL BACK YET FROM .
--- NOTE | 2016-05-29 07:08 | NUR ---
MD ROJAS MADE AWARE THAT PT HAS NOT VOIDED SINCE 1030 YESTERDAY MORNING. TO SEE PT.
[2016-05-29] MEDS: BUDESONIDE 0.25 MG/2 ML NEBU INH SCH ×2 (07:09→19:00)
[2016-05-29] MEDS: NACL 0.9% 1,000 ML IV SCH ×2 (07:09→17:17)
--- NOTE | 2016-05-29 07:20 | NUR ---
RECEIVED REPORT FROM MARC SAUER. PT IS AAOX4. PT IS ON O2 4L/MIN NC. IV TO LEFT HAND #22 PATENT AND INTACT. SKIN IS INTACT. PACEMAKER TO LEFT UPPER CHEST. SAFETY PRECAUTIONS IN PLACE WITH BED IN LOWEST POSITION AND SIDE RAILS UP. CALL LIGHT WITHIN REACH. WILL CONTINUE TO MONITOR.
--- NOTE | 2016-05-29 07:20 | NUR ---
ENDORSED PT IN STABLE CONDITION TO MARC MOHR. ALL NEEDS HAVE BEEN MET AT THIS TIME.
--- NOTE | 2016-05-29 07:53 | NUR ---
PATIENT HAS BEEN SCREENED AND CATEGORIZED HIGH NUTRITION RISK. PATIENT WILL BE SEEN WITHIN 1-2 DAYS OF ADMISSION. 05/29/16-05/30/[address]
[2016-05-29 08:00] VITALS: BP 104/66
[2016-05-29] MEDS: DIVALPROEX 500 MG TABEC PO SCH ×2 (08:09→21:23)
[2016-05-29] MEDS: ARIPiprazole 10 MG TAB PO SCH (08:09)
[2016-05-29] MEDS: DIGOXIN 0.125 MG TAB PO SCH (08:09)
[2016-05-29] MEDS: CARBIDOPA/LEVODOPA 25/100 MG 1 TAB PO SCH ×3 (08:09→16:57)
--- NOTE | 2016-05-29 08:11 | NUR ---
CHECKED BP: 104/66, HR: 98, AND POTASSIUM: 4.7. ADMINISTERED MEDICATION ORDERED. PT TOLERATED WELL.
[2016-05-29] MEDS: APIXABAN 2.5 MG TAB PO SCH ×2 (08:13→21:27)
--- NOTE | 2016-05-29 08:40 | NUR ---
PT TO CT VIA WHEELCHAIR
--- NOTE | 2016-05-29 08:51 | NUR ---
PT BACK FROM CT.
[2016-05-29] MEDS ORDERED: SPIRONOLACTONE 25 MG TAB PO SCH (09:00)
[2016-05-29] MEDS ORDERED: DILTIAZEM 120 MG CAPER PO SCH (09:00)
[2016-05-29] MEDS ORDERED: FUROSEMIDE 20 MG TAB PO SCH (09:00)
[2016-05-29] MEDS ORDERED: NITROGLYCERIN 0.4 MG TAB SL PRN (10:15)
[2016-05-29] MEDS ORDERED: BENAZEPRIL 20 MG TAB PO SCH (10:17)
--- NOTE | 2016-05-29 10:36 | NUR ---
COLLECTED URINE SPECIMEN AND SENT TO LAB
--- NOTE | 2016-05-29 11:07 | NUR ---
CHECKED BP: 92/39, HELD LOTENSIN.
[2016-05-29 12:00] VITALS: BP 92/39
[2016-05-29] MEDS ORDERED: PIPER/TAZO 2.25GM/D5W PREMIX 50 ML IV SCH (12:00)
[2016-05-29] MEDS ORDERED: PIPER/TAZO 3.375GM/D5W PREMIX 50 ML IV SCH (12:00)
--- NOTE | 2016-05-29 12:22 | NUR ---
PT TOLERATED MEDS WELL.
--- NOTE | 2016-05-29 12:52 | NUR ---
FAXED INITIAL REVIEW TO [facility] [phone] PHONE MAISHA [phone].
--- NOTE | 2016-05-29 14:00 | NUR ---
DR. SUE IN TO SEE PT. WILL FOLLOW UP ON ORDERS.
[2016-05-29] MEDS ORDERED: NACL 0.9% 1,000 ML IV SCH (14:20)
--- NOTE | 2016-05-29 14:57 | NUR ---
CHECKED ON PT. RESTING AT THIS TIME, AROUSABLE. CALL LIGHT WITHIN REACH.
--- NOTE | 2016-05-29 15:32 | NUR ---
CHECKED BP: 82/40, PT IS ASYMPTOMATIC. PAGED DR. SUE. AWAITING CALLBACK.
[2016-05-29 16:00] VITALS: BP 82/40
--- NOTE | 2016-05-29 16:07 | NUR ---
RECEIVED CALLBACK FROM DR. SUE. NEW ORDERS RECEIVED.
[2016-05-29] MEDS ORDERED: NACL 0.9% 500 ML IV SCH (16:10)
[2016-05-29] MEDS: AZITHROMYCIN 500 MG in DEXTROSE 5% 250 ML IV SCH (16:58)
--- NOTE | 2016-05-29 17:05 | NUR ---
PT TOLERATED MEDS WELL.
--- NOTE | 2016-05-29 18:07 | NUR ---
PT'S IV CAME OUT, CANNULA INTACT. APPLIED GAUZE AND TAPE TO SITE. WILL ATTEMPT NEW INSERTION.
--- NOTE | 2016-05-29 19:34 | NUR ---
ENDORSED CARE TO MARC MOHR. PT IN STABLE CONDITION.
--- NOTE | 2016-05-29 19:35 | NUR ---
RECEIVED REPORT FROM DAY RN FOR CONTINUITY OF CARE. PATIENT IS A&OX4, DISCUSSED PLAN OF CARE WITH PATIENT, VERBALIZED UNDERSTANDING. SHIFT ASSESSMENT DONE, VS TAKEN, IN STABLE CONDITION. NO S/S OF RESPIRATORY DISTRESS NOTED ON 4L NC. PATIENT DENIES PAIN AT THIS TIME. IV TO RT HAND PATENT AND INFUSING FLUIDS WELL. SAFETY/ FALL PRECAUTIONS ENFORCED. CALL LIGHT WITHIN REACH. WILL CONTINUE TO MONITOR.
[2016-05-29 20:00] VITALS: BP 101/49
[2016-05-29] MEDS: ATORVASTATIN 20 MG TAB PO SCH (21:23)
[2016-05-29] MEDS: traZODone 50 MG TAB PO SCH (21:23)
--- NOTE | 2016-05-29 21:23 | NUR ---
DUE MEDICATIONS ADMINISTERED, TOLERATED WELL. CALL LIGHT WITHIN REACH.
--- NOTE | 2016-05-29 23:46 | NUR ---
VS TAKEN. NO S/S OF DISTRESS NOTED. PATIENT DENIES PAIN. WILL CONTINUE TO MONITOR.
[2016-05-30] VITALS: BP 98/44
[2016-05-30] MEDS: ALBUTEROL SULFATE/IPRATROPIU 3 ML SOL IH SCH ×4 (00:52→19:30)
--- NOTE | 2016-05-30 02:03 | NUR ---
PATIENT IS SLEEPING. NO S/S OF DISTRESS NOTED. CONTINUOUS PULSE OX AT 94% ON 4L NC. CALL LIGHT WITHIN REACH.
[2016-05-30 04:00] VITALS: BP 105/56
--- NOTE | 2016-05-30 04:30 | NUR ---
PT AMBULATED TO BR WITH MINIMAL ASSIST, TRIED TO VOID BUT UNABLE TO DO SO, WENT BACK TO BED AND BLADDER SCANNED WITH 306 ML READING NOTED, PT DENIES ANY PAIN, RN FANI AWARE.
--- NOTE | 2016-05-30 04:35 | NUR ---
VS TAKEN, STABLE. PT DENIES PAIN. AMBULATED TO RESTROOM, UNABLE TO VOID AT THIS TIME. WILL CONTINUE TO MONITOR.
[2016-05-30] MEDS: NACL 0.9% 1,000 ML IV SCH ×2 (05:20→12:50)
--- NOTE | 2016-05-30 06:39 | NUR ---
PAGED DR. GODWIN, AWAITING REPLY.
[2016-05-30] MEDS: BUDESONIDE 0.25 MG/2 ML NEBU INH SCH ×2 (06:40→19:30)
--- NOTE | 2016-05-30 07:10 | NUR ---
PAGED DR. STAPLES, AWAITING REPLY.
--- NOTE | 2016-05-30 07:30 | NUR ---
RECEIVED REPORT FROM LEAF SIZE PICKER RN. PT AWAKE, ALERT, AND ORIENTED. ON O2NC 4/MIN, NO S/S OF RESPIRATORY DISTRESS NOTED. IV TO RIGHT HAND , SITE INTACT AND PATENT. PT ABLE TO MOVE ALL HIS EXTREMITIES, POC DISCUSSED WITH PT, PT VERBALIZED UNDERSTANDING. CALL LIGHT IN REACH, WILL CONTINUE TO MONITOR.
--- NOTE | 2016-05-30 07:40 | NUR ---
ENDORSED PATIENT TO DAY RN FOR CONTINUITY OF CARE, PATIENT IS IN STABLE CONDITION. Addendum: 05/30/16 at 0750 by Kaitlin Lewis RN NO REPLY FROM [facility], ENDORSED TO DAY RN TO FOLLOW UP.
[2016-05-30 08:00] VITALS: BP 104/42
[2016-05-30] MEDS: CARBIDOPA/LEVODOPA 25/100 MG 1 TAB PO SCH ×3 (08:42→16:05)
[2016-05-30] MEDS: ARIPiprazole 10 MG TAB PO SCH (08:43)
[2016-05-30] MEDS: DIVALPROEX 500 MG TABEC PO SCH ×2 (08:43→20:39)
[2016-05-30] MEDS: methylPREDNISolone SS 40 MG/ML VIAL IVP SCH (08:43)
[2016-05-30] MEDS ORDERED: BENAZEPRIL 20 MG TAB PO SCH (09:00)
[2016-05-30] MEDS ORDERED: NACL 0.9% 500 ML IV SCH (09:10)
--- NOTE | 2016-05-30 09:30 | NUR ---
DR. SUE IN TO SEE PT. UPDATED PT CONDITION AND LAB REPORT. PER DR. SUE, GIVE PT O.9 NS 500 ML BOLUS AND INSERT BUNCH CATH. ORDERS CARRIED OUT.
[2016-05-30] MEDS: APIXABAN 2.5 MG TAB PO SCH ×2 (09:39→20:42)
[2016-05-30] MEDS: LORazepam 0.5 MG TAB PO PRN (09:40)
--- NOTE | 2016-05-30 10:00 | NUR ---
PT HAD CLEAR YELLOW URINE 400 ML OUTPUT.
[2016-05-30 11:28] VITALS: BP 104/55
--- NOTE | 2016-05-30 11:30 | NUR ---
LUNCH TRAY SERVED.
--- NOTE | 2016-05-30 11:52 | NUR ---
CM NOTE FAXED CONCURRENT REVIEW TO [facility] [phone] PHONE MAISHA [phone].
--- NOTE | 2016-05-30 13:00 | NUR ---
IN TO SEE PT. AWARE BUN 89, CREATININE 4.5.
--- NOTE | 2016-05-30 14:34 | NUR ---
05/30/16 RD INITIAL ASSESSMENT COMPLETED PLEASE REFER TO NUTRITION ASSESSMENT UNDER CARE ACTIVITY FOR ESTIMATED NUTRITIONAL NEEDS. RD RECOMMENDATIONS: CONTINUE ON CARDIAC DIET TOLERATED. --NOTE PT MEETING >75% ESTIMATED NUTRITIONAL NEEDS RD GAVE PT HEALTHY EATING EDUCATION, PT ACCEPTED. RD WILL F/U 3-5 DAYS; MODERATE RISK. OLESYA HOLLAND RD
[2016-05-30 16:00] VITALS: BP 106/56
[2016-05-30] MEDS: SEVELAMER CARBONATE 800 MG TAB PO SCH (16:05)
[2016-05-30] MEDS: AZITHROMYCIN 500 MG in DEXTROSE 5% 250 ML IV SCH (16:08)
[2016-05-30] MEDS ORDERED: LORazepam 2 MG/ML VIAL IVP SCH (16:40)
--- NOTE | 2016-05-30 16:40 | NUR ---
PT ACCIDENTLY PULLED OUT BUNCH CATH. DR. SUE AWARE. PER DR. SUE , REINSERT A NEW CATH . WILL CARRY OUT.
--- NOTE | 2016-05-30 17:00 | NUR ---
A NEW BUNCH CATH INSERTED. PT HAD 200 ML URINE OUTPUT. NO PAIN OR DISCOMFORT COMPLAINED AT THIS TIME. WILL CONTINUE TO MONITOR.
--- NOTE | 2016-05-30 18:47 | NUR ---
PT'S SISTER AT BEDSIDE CHATTING WITH PT. NO S/S OF RESPIRATORY DISTRESS NOTED.
--- NOTE | 2016-05-30 19:05 | NUR ---
REPORT GIVEN TO MT TRAN. NO S/S OF RESPIRATORY DISTRESS NOTED. PT RESTING IN BED. AWAKE, ALERT, AND ORIENTED.
--- NOTE | 2016-05-30 19:30 | NUR ---
RECEIVED REPORT FROM DAY RN AT BEDSIDE, PATIENT RESTING IN BED WITH VISITOR AT BEDSIDE, PATIENT IS ON NASAL CANNULA AT 4L/MIN, NO SOB OR SIGN OF DISTRESS. PATIENT DOES HAVE SOME SOB WITH ACTIVITY. IV TO RH PATENT AND INTACT, SKIN INTACT. BUNCH WITH CLEAR YELLOW URINE. DISCUSSED PLAN OF CARE WITH PATIENT, PATIENT VERBALIZED UNDERSTANDING, SAFETY MEASURES CHECKED, CALL LIGHT WITHIN REACH. WILL CONTINUE TO MONITOR.
[2016-05-30 20:00] VITALS: BP 103/40
[2016-05-30] MEDS: traZODone 50 MG TAB PO SCH (20:39)
[2016-05-30] MEDS: ATORVASTATIN 20 MG TAB PO SCH (20:39)
--- NOTE | 2016-05-30 20:49 | NUR ---
PM MEDS ADMINISTERED, PATIENT TOLERATED WELL, PATIENT REPOSITIONED, CALL LIGHT WITHIN REACH. WILL CONTINUE TO MONITOR.
[2016-05-31] VITALS (7 sets, daily range): BP systolic 84–130; BP diastolic 42–86
--- NOTE | 2016-05-31 00:41 | NUR ---
PATIENT BP 84/42, PATIENT ASYMPTOMATIC, PAGED DR GODWIN, ORDERS RECEIVED FOR 1L BOLUS NS AND TO MONITOR PATIENT, WILL FOLLOW UP WITH ORDERS.
[2016-05-31] MEDS ORDERED: NACL 0.9% 1,000 ML IV SCH (00:50)
[2016-05-31] MEDS: ALBUTEROL SULFATE/IPRATROPIU 3 ML SOL IH SCH ×4 (01:20→18:56)
--- NOTE | 2016-05-31 01:45 | NUR ---
1L BOLUS COMPLETE. BP 112/43 HR 109, PATIENT SLEEPING COMFORTABLE, CALL LIGHT WITHIN REACH. WILL CONTINUE TO MONITOR.
--- NOTE | 2016-05-31 04:15 | NUR ---
VITAL SIGNS STABLE, NO SOB OR SIGN OF DISTRESS AT THIS TIME, CALL LIGHT WITHIN REACH. WILL CONTINUE TO MONITOR.
[2016-05-31] MEDS: BUDESONIDE 0.25 MG/2 ML NEBU INH SCH ×2 (07:04→18:56)
--- NOTE | 2016-05-31 07:33 | NUR ---
ENDORSED PATIENT TO DAY RN AT BEDSIDE, PATIENT IN STABLE CONDITION
--- NOTE | 2016-05-31 07:40 | NUR ---
RECEIVED PT LYING IN BED WITH O2@L/NC. PT AAOX4 AND VOICED NO C/O PAIN AT THIS TIME AND PT WAS IN NO DISTRESS. SHIFT ASSESSMENT DONE AND CHARTED. PLAN OF CARE, MEDS, SAFETY AND TREATMENTS DISCUSSED WITH PT AND PT VERBALIZED UNDERSTANDING. WILL CONTINUE TO CHECK ON PT.
[2016-05-31] MEDS: SEVELAMER CARBONATE 800 MG TAB PO SCH ×3 (08:02→18:02)
[2016-05-31] MEDS: DIGOXIN 0.125 MG TAB PO SCH (08:02)
[2016-05-31] MEDS: DIVALPROEX 500 MG TABEC PO SCH ×2 (08:02→20:17)
[2016-05-31] MEDS: methylPREDNISolone SS 40 MG/ML VIAL IVP SCH (08:03)
[2016-05-31] MEDS: ARIPiprazole 10 MG TAB PO SCH (08:03)
[2016-05-31] MEDS: CARBIDOPA/LEVODOPA 25/100 MG 1 TAB PO SCH ×3 (08:20→18:03)
[2016-05-31] MEDS: APIXABAN 2.5 MG TAB PO SCH ×2 (08:22→20:21)
--- NOTE | 2016-05-31 08:30 | NUR ---
PT'S HR WAS IN THE 160'S PT VOICED NO C/O CHEST/ SOB OR ANY OTHER DISCOMFORT. PT ASSISTED TO BR PER PT'S REQUEST. PT GAIT WEAK BUT STEADY. PT ASSISTED BACK TO BED AFTER. WILL CONTINUE TO MONITOR PT.
--- NOTE | 2016-05-31 09:30 | NUR ---
DR. SUE WAS IN AND MADE AWARE OF PT'S UNCONTROLLED AFIB. LEFT NEW ORDER.
--- NOTE | 2016-05-31 10:44 | NUR ---
ABG DONE WITHOUT INCIDENT. GAVE RESULTS TO DR SUE.
--- NOTE | 2016-05-31 12:30 | NUR ---
PT'S SISTER VISITING AT BEDSIDE.NO CHANGES NOTED IN PT'S CONDITION.PT'S HANDS SHAKY AT TIMES BUT ABLE TO FEED SELF.
[2016-05-31] MEDS: guaiFENesin DM 200/20 MG-10 ML 10 ML UDC PO SCH ×2 (12:48→20:17)
--- NOTE | 2016-05-31 13:56 | NUR ---
CM NOTE CONCURRENT REVIEW FAXED TO [facility] / FAX# [phone], ATTN: MAISHA #[phone].
[2016-05-31] MEDS ORDERED: FUROSEMIDE 20 MG/2 ML VIAL IVP SCH (14:28)
--- NOTE | 2016-05-31 14:30 | NUR ---
DR. PERALES WAS IN TO SEE PT AND NOTIFIED RE UNCONTROLLED AFIB. LEFT NEW ORDERS.
[2016-05-31] MEDS: AMIODARONE 200 MG TAB PO SCH (15:14)
--- NOTE | 2016-05-31 16:30 | NUR ---
PT RESTING IN BED COMFORTABLY. PT STATED THAT THE COUGH SYRUP HELPED. NO COUGHING SPELL NOTED AT THIS TIME.
[2016-05-31] MEDS: AZITHROMYCIN 500 MG in DEXTROSE 5% 250 ML IV SCH (16:46)
--- NOTE | 2016-05-31 18:30 | NUR ---
PT TOOK DIET AND FLUIDS WELL. NO CHANGES IN PT'S CONDITION.
--- NOTE | 2016-05-31 19:20 | NUR ---
REPORT GIVEN TO MT TRAN AT BEDSIDE.PT'S CONDITION UNCHANGED. NO C/O PAIN/ DISCOMFORT AT THIS TIME.
--- NOTE | 2016-05-31 19:30 | NUR ---
RECEIVED REPORT FROM DAY RN AT BEDSIDE, PATIENT IS AAOX4 RESTING IN BED, ON NASAL CANNULA AT 4L, NO SOB OR SIGN OF DISTRESS AT THIS TIME, SKIN IS INTACT, IV TO LH PATENT AND INTACT, BUNCH PRESENT WITH CLEAR YELLOW URINE. DISCUSSED PLAN OF CARE WITH PATIENT, PATIENT VERBALIZED UNDERSTANDING, SAFETY MEASURES CHECKED, CALL LIGHT WITHIN REACH. WILL CONTINUE TO MONITOR.
[2016-05-31] MEDS: ATORVASTATIN 20 MG TAB PO SCH (20:17)
--- NOTE | 2016-05-31 20:22 | NUR ---
PM MEDS ADMINISTERED, PATIENT TOLERATED WELL, CALL LIGHT WITHIN REACH. WILL CONTINUE TO MONITOR
--- NOTE | 2016-05-31 20:30 | NUR ---
SMOKING TOBACCO PACKER HAND ALERTED, PATIENT HR WENT UP TO 156, THEN CAME BACK DOWN TO BASELINE, PATIENT WAS ASYMPTOMATIC, NO CHEST PAIN OR SOB. WILL CONTINUE TO MONITOR
[2016-06-01] VITALS: BP 139/82
--- NOTE | 2016-06-01 00:10 | NUR ---
VITAL SIGNS STABLE, NO SOB OR SIGN OF DISTRESS AT THIS TIME, CALL LIGHT WITHIN REACH. WILL CONTINUE TO MONITOR.
[2016-06-01] MEDS: ALBUTEROL SULFATE/IPRATROPIU 3 ML SOL IH SCH ×4 (00:38→18:58)
--- NOTE | 2016-06-01 02:20 | NUR ---
PATIENT SLEEPING, NO SOB OR SIGN OF DISTRESS AT THIS TIME, CALL LIGHT WITHIN REACH. WILL CONTINUE TO MONITOR.
[2016-06-01 04:00] VITALS: BP 120/72
--- NOTE | 2016-06-01 04:15 | NUR ---
PATIENT SLEEPING COMFORTABLE, NO SOB OR SIGN OF DISTRESS AT THIS TIME, CALL LIGHT WITHIN REACH. WILL CONTINUE TO MONITOR.
[2016-06-01] MEDS: guaiFENesin DM 200/20 MG-10 ML 10 ML UDC PO SCH ×3 (04:38→20:39)
[2016-06-01] MEDS: BUDESONIDE 0.25 MG/2 ML NEBU INH SCH ×2 (07:06→18:58)
--- NOTE | 2016-06-01 07:22 | NUR ---
ENDORSED PATIENT TO DAY RN AT BEDSIDE, PATIENT IN STABLE CONDITION.
--- NOTE | 2016-06-01 07:23 | NUR ---
RECEIVED REPORT AT PT BEDSIDE. NO S/S OF ACUTE DISTRESS. ON O2 4L NC. RESPIRATORY THERAPIST AT BEDSIDE. PATIENT DENIES PAIN. IV SITE PATENT AND INTACT. CALL LIGHT WITHIN REACH. AAOX4. AMBULATORY WITH ASSIST. BUNCH TO GRAVITY. WILL CONTINUE TO MONITOR.
[2016-06-01 08:00] VITALS: BP 140/66
[2016-06-01] MEDS: DIGOXIN 0.125 MG TAB PO SCH (08:24)
[2016-06-01] MEDS: DIVALPROEX 500 MG TABEC PO SCH ×2 (08:24→20:39)
[2016-06-01] MEDS: SEVELAMER CARBONATE 800 MG TAB PO SCH ×3 (08:24→17:51)
[2016-06-01] MEDS: ARIPiprazole 10 MG TAB PO SCH (08:24)
[2016-06-01] MEDS: CARBIDOPA/LEVODOPA 25/100 MG 1 TAB PO SCH ×3 (08:24→17:51)
[2016-06-01] MEDS: methylPREDNISolone SS 40 MG/ML VIAL IVP SCH (08:25)
[2016-06-01] MEDS: FUROSEMIDE 20 MG/2 ML VIAL IVP SCH (08:26)
[2016-06-01] MEDS: APIXABAN 2.5 MG TAB PO SCH ×2 (08:28→20:41)
--- NOTE | 2016-06-01 09:00 | NUR ---
PATIENT SEEN BY DR. SUE AT PT BEDSIDE.
[2016-06-01 12:00] VITALS: BP 112/78
--- NOTE | 2016-06-01 13:10 | NUR ---
PATIENT SEEN BY DR. LEVINE AT BEDSIDE. PATIENT RESTING IN BED. SISTER AT BEDSIDE. DENIES DISCOMFORT.
--- NOTE | 2016-06-01 13:35 | NUR ---
PHYSICAL THERAPY CO-SIGN The Physical Therapy Progress Notes documented by Coal Dumping Equipment Operator have been reviewed. I CONCUR W/RESIDENCE HALL DIRECTOR NOTE; CONT PER TX PLAN Reviewed/Co-Signed by: Disha Friend PT Documentation Done by: RANDALL RODRIGUEZ RESIDENCE HALL DIRECTOR Addendum: 06/01/16 at 1335 by Disha Friend PT Amended: Links added.
--- NOTE | 2016-06-01 13:50 | NUR ---
CM NOTE PER NARAYAN FERRERA FOR [facility] TO [facility] FOR HOME HEALTH FOR SAFETY EVAL.
--- NOTE | 2016-06-01 14:04 | NUR ---
CM NOTE CONCURRENT REVIEW FAXED TO [facility] / FAX# [phone], ATTN: MAISHA #[phone].
--- NOTE | 2016-06-01 15:00 | NUR ---
SS NOTE: PER NARAYAN BARAKAT MD ORDER FOR HOME HEALTH FOR SAFETY EVAL SENT TO [facility]
[2016-06-01] MEDS: AZITHROMYCIN 500 MG in DEXTROSE 5% 250 ML IV SCH (15:09)
[2016-06-01] MEDS: AMIODARONE 200 MG TAB PO SCH (15:09)
[2016-06-01 16:00] VITALS: BP 143/68
--- NOTE | 2016-06-01 16:50 | NUR ---
ASSISTED PT TO BATHROOM. PT HAD MODERATE BM. NO S/S OF ACUTE DISTRESS.
--- NOTE | 2016-06-01 19:19 | NUR ---
SBAR REPORT GIVEN TO MARC MOHR AT PT BEDSIDE. NO S/S OF ACUTE DISTRESS NOTED.
--- NOTE | 2016-06-01 19:20 | NUR ---
RECEIVED REPORT FROM DAY RN FOR CONTINUITY OF CARE. PATIENT IS A&OX4, DISCUSSED PLAN OF CARE WITH PATIENT, VERBALIZED UNDERSTANDING. SHIFT ASSESSMENT DONE, VS TAKEN, STABLE. NO S/S OF RESPIRATORY DISTRESS NOTED ON 4L NC. PATIENT DENIES PAIN AT THIS TIME. IV TO RT HAND PATENT AND FLUSHED, DRESSING CHANGED. SAFETY/ FALL PRECAUTIONS ENFORCED. CALL LIGHT WITHIN REACH. WILL CONTINUE TO MONITOR. Addendum: 06/02/16 at 0322 by Kaitlin Lewis RN BUNCH CATHETER IN PLACE DRAINING CLEAR YELLOW URINE TO GRAVITY.
[2016-06-01 20:00] VITALS: BP 130/70
[2016-06-01] MEDS: ATORVASTATIN 20 MG TAB PO SCH (20:39)
--- NOTE | 2016-06-01 20:41 | NUR ---
DUE MEDICATIONS ADMINISTERED, TOLERATED WELL. CALL LIGHT WITHIN REACH.
--- NOTE | 2016-06-01 22:12 | NUR ---
PATIENT IS SLEEPING. NO S/S OF DISTRESS OR DISCOMFORT NOTED. CALL LIGHT WITHIN REACH.
[2016-06-02] VITALS: BP 136/90
--- NOTE | 2016-06-02 00:14 | NUR ---
VS TAKEN, STABLE. NO S/S OF DISTRESS NOTED ON 4L NC. CALL LIGHT WITHIN REACH.
[2016-06-02] MEDS: ALBUTEROL SULFATE/IPRATROPIU 3 ML SOL IH SCH ×2 (00:22→07:08)
--- NOTE | 2016-06-02 02:05 | NUR ---
BUNCH CATHETER EMPTIED, 100ML CLEAR YELLOW URINE NOTED. PT IS SLEEPING. NO S/S OF DISTRESS NOTED. WILL CONTINUE TO MONITOR.
--- NOTE | 2016-06-02 03:21 | NUR ---
ADD: BUNCH CATHETER IN PLACE DRAINING CLEAR YELLOW URINE TO GRAVITY. Addendum: 06/02/16 at 0322 by Kaitlin Lewis RN DISREGARD NOTE.
[2016-06-02 04:00] VITALS: BP 130/75
[2016-06-02] MEDS: guaiFENesin DM 200/20 MG-10 ML 10 ML UDC PO SCH ×2 (04:20→11:55)
--- NOTE | 2016-06-02 04:22 | NUR ---
VS TAKEN, STABLE. PATIENT DENIES PAIN. 900 ML EMPTIED FROM BUNCH BAG. CALL LIGHT WITHIN REACH.
--- NOTE | 2016-06-02 06:05 | NUR ---
PT IS SLEEPING. NO S/S OF DISTRESS OR DISCOMFORT NOTED. WILL CONTINUE TO MONITOR.
[2016-06-02] MEDS: BUDESONIDE 0.25 MG/2 ML NEBU INH SCH (07:08)
--- NOTE | 2016-06-02 07:16 | NUR ---
ENDORSED PATIENT TO DAY RN FOR CONTINUITY OF CARE, PATIENT IS IN STABLE CONDITION.
--- NOTE | 2016-06-02 07:17 | NUR ---
RECEIVED SBAR REPORT AT PT BEDSIDE. PT RESTING IN BED. NO S/S OF ACUTE DISTRESS. ON O2 3L NC. HAS BUNCH TO GRAVITY. IV SITE PATENT AND INTACT. CALL LIGHT WITHIN REACH. RT AT BEDSIDE FOR BREATHING TREATMENT. DENIES PAIN. AAOX4. AMBULATORY WITH ASSIST.
[2016-06-02 08:00] VITALS: BP 141/75
[2016-06-02] MEDS: DIVALPROEX 500 MG TABEC PO SCH (08:36)
[2016-06-02] MEDS: ARIPiprazole 10 MG TAB PO SCH (08:37)
[2016-06-02] MEDS: FUROSEMIDE 20 MG/2 ML VIAL IVP SCH (08:38)
[2016-06-02] MEDS: methylPREDNISolone SS 40 MG/ML VIAL IVP SCH (08:38)
[2016-06-02] MEDS: APIXABAN 2.5 MG TAB PO SCH (08:38)
[2016-06-02] MEDS: CARBIDOPA/LEVODOPA 25/100 MG 1 TAB PO SCH ×2 (08:39→11:55)
[2016-06-02] MEDS: DIGOXIN 0.125 MG TAB PO SCH (08:39)
[2016-06-02] MEDS: SEVELAMER CARBONATE 800 MG TAB PO SCH ×2 (08:39→11:55)
--- NOTE | 2016-06-02 09:10 | NUR ---
PATIENT SEEN BY DR. SUE AT BEDSIDE. PT IN AGREEMENT TO TRANSFER TO SNF FOR PT AND CONTINUED IV ABX.
[2016-06-02] MEDS ORDERED: IPRATROPIUM BROM3 M1 IH (09:19)
[2016-06-02] MEDS ORDERED: PULMICORT0.25 MG/2 INH (09:19)
[2016-06-02] MEDS ORDERED: PROZAC10 M1 PO (09:19)
[2016-06-02] MEDS ORDERED: ROBITUSSIN/DEXT10 ML PO ×2 (09:19)
[2016-06-02] MEDS ORDERED: PREDNISONE10 M1 PO (09:19)
--- NOTE | 2016-06-02 09:44 | NUR ---
FAXED CONCURRENT REVIEW TO [facility] [phone] PHONE MAISHA [phone] SPOKE WITH MAISHA AT [facility] AND INFORMED HER PATIENT IS WILLING TO GO TO SNF. SHE SAID THE PATIENT CAN GO TO [facility] ROOM 37C UNDER . AUTH FOR PORT TOBACCO IS [id number]. SPOKE WITH STEPHANY TRAN AND INFORMED HIM. WILL SET UP TRANSPORT.
--- NOTE | 2016-06-02 10:01 | NUR ---
CALLED [facility] AND SET UP WC TRANSPORT WITH O2. MANAGER INVENTORY WILL BE 12 NOON. [facility] TRAN AWARE.
[2016-06-02 11:06] VITALS: BP 141/75
--- NOTE | 2016-06-02 11:10 | NUR ---
PATIENT SEEN BY PHYSICAL THERAPY. PATIENT AMBULATED AROUND NURSING STATION, NO S/S OF ACUTE DISTRESS. PT MADE AWARE OF TRANSFER TO [facility]. PATIENT NOTIFIED CAREGIVER. REPORT GIVEN TO RN AT [facility]. [facility] CALLED, STATED THEY WILL BE PICKING THE PATIENT UP AROUND 1300.
[2016-06-02 11:49] VITALS: BP 129/97
[2016-06-02] MEDS: LORazepam 0.5 MG TAB PO PRN (11:55)
--- NOTE | 2016-06-02 12:10 | NUR ---
DISCHARGE INSTRUCTIONS GIVEN TO PATIENT. INFORMED OF FOLLOW UP APPOINTMENTS AND MEDICATION TEACHING. VERBALIZED UNDERSTANDING. [facility] HERE TO TAKE PT TO [facility]. NO S/S OF ACUTE DISTRESS. AAOX4. AMBULATED TO WHEEL CHAIR. PATIENT WAS WHEELED TO FRONT LOBBY WITH NO S/S OF DISTRESS.
--- NOTE | 2016-06-02 13:00 | NUR ---
PHYSICAL THERAPY CO-SIGN The Physical Therapy Progress Notes documented by Colored Liquid Plastic Applier have been reviewed. Reviewed/Co-Signed by: Archana Bunn,PT Documentation Done by: Leslie Ross PTA I concur with the documentation of this CHLORINE OPERATOR. Patient is discharged now to [facility] place and may benefit from more PT. Addendum: 06/02/16 at 1413 by Archana Bunn PT Amended: Links added.
== END 2016-06-02 12:10 | DRG 177 ==
LOC: MED 11:51 → MTU 14:35
PROVIDERS: ADMIT Hospitalist; ATTEND Hospitalist
DX: J69.0 Pneumonitis due to inhalation of food and vomit (principal); J96.00 Acute respiratory failure, unspecified whether with hypoxia or hypercapnia; N17.0 Acute kidney failure with tubular necrosis; E43 Unspecified severe protein-calorie malnutrition; J44.1 Chronic obstructive pulmonary disease with (acute) exacerbation; Z68.41 Body mass index [BMI] 40.0-44.9, adult; Q61.3 Polycystic kidney, unspecified; G20 Parkinson's disease; I25.10 Atherosclerotic heart disease of native coronary artery without angina pectoris; F31.9 Bipolar disorder, unspecified; F29 Unspecified psychosis not due to a substance or known physiological condition; E66.01 Morbid (severe) obesity due to excess calories; N18.3 Chronic kidney disease, stage 3 (moderate); G47.33 Obstructive sleep apnea (adult) (pediatric); M43.16 Spondylolisthesis, lumbar region; D72.829 Elevated white blood cell count, unspecified; I48.2 Chronic atrial fibrillation; J20.9 Acute bronchitis, unspecified; I95.89 Other hypotension; I10 Essential (primary) hypertension; Z98.61 Coronary angioplasty status; Z95.0 Presence of cardiac pacemaker; Z79.899 Other long term (current) drug therapy; Z71.3 Dietary counseling and surveillance

== ENCOUNTER 2016-07-08 21:25 | Emergency (ER) | payer OTHER ==
[~2016-07-08] VITALS: Ht 170.2 cm; Wt 118.4 kg
[~2016-07-08 21:25] MED LIST changes: -ABILIFY10 MG PO; -ABILIFY20 MG PO; +AMIO100T3 PO; -AMIODARONE HCL100 MG PO; -ANDROGEL1.62% TP; +APIX5TAB PO; +ARIP20TA16 PO; -ATARAX HCL25 MG PO; +ATI.5 PO; -ATIVAN0.5 MG PO; +ATOR20TA PO; +BENA40TA PO; +BUDE1AER IH; -CARDIZEM120 M2 PO; -COUMADIN3 MG PO; -DEPAKOTE PO; -DEPAKOTE500 MG PO; +DIGO0.121 PO; +DILT-135 PO; +DIVA500E1 PO; -ELIQUIS5 MG PO; +FLO44 INH; -FLOVENT HF44 MCG/ACT INH; +FLUO10CA21 PO; +FURO-572 PO; +IPRA3AMP IH; -LANOXIN0.125 MG PO; -LASIX20 MG PO; -LIPITOR20 MG PO; -LOPRESSOR100 MG PO; -LOTENSIN10 MG PO; -LOTENSIN40 MG PO; -LOTENSIN5 MG PO; -METOPROLOL SUC100 M1 PO; -MIRAPEX0.5 MG PO; +NITR0.4T2 SL; -NITROSTAT0.4 M1 SL; -NORVASC10 MG PO; -ORETIC25 MG PO; -PLAVIX75 MG PO; +PRED10TA6 PO; +PUL.25N INH; +ROBDM PO; +SIN25100 PO; -SINEMET 25/1001 TAB PO; +SPIR25TA13 PO; -SPIRONOLACTONE25 M1 PO; -SYMBICORT1 AE1 IH; +TRAZ-289 PO; -TRAZADONE HYDR100 MG PO; -TRAZODONE100 M1 PO; -VISTARIL50 MG/ML IM; +[UNRECOGNIZED DRUG - CODE] PO
[2016-07-08 21:32] VITALS: BP 139/76
--- NOTE | 2016-07-08 22:51 | NUR ---
PT TAKEN TO BED 4
--- NOTE | 2016-07-08 22:55 | NUR ---
PT CAME TO ER WITH C/O RT LEG NUMBNESS, AND ON & OFF OF BURNING SENSATION FOR A MONTH
--- NOTE | 2016-07-08 23:26 | NUR ---
Patient being evaluated by DR ERICKSON at bedside.
[2016-07-09 02:25] VITALS: BP 118/76
--- NOTE | 2016-07-09 02:25 | NUR ---
Patient discharged with v/s stable BY DR. ERICKSON. Written and verbal after care instructions given and explained. Patient verbalized understanding. Ambulatory with steady gait. All questions addressed prior to discharge. Advised to follow up with PMD.
== END 2016-07-09 02:25 | disposition home or self-care (01) ==
LOC: MED 21:25
DX: R20.9 Unspecified disturbances of skin sensation (principal); G20 Parkinson's disease; J45.909 Unspecified asthma, uncomplicated; I48.91 Unspecified atrial fibrillation; I25.10 Atherosclerotic heart disease of native coronary artery without angina pectoris; I10 Essential (primary) hypertension; Z95.0 Presence of cardiac pacemaker
CPT/HCPCS: 70450; 81002; 99284

== ENCOUNTER 2016-09-30 16:02 | Emergency (ER) | payer OTHER ==
[~2016-09-30] VITALS: Ht 172.7 cm; Wt 127.9 kg
[2016-09-30 16:08] VITALS: BP 132/72
--- NOTE | 2016-09-30 16:29 | NUR ---
PATIENT TO ER BED 6.
--- NOTE | 2016-09-30 16:30 | NUR ---
PATIENT PRESENTS TO ED WITH REQUESTING ATIVAN C/O ANXIETY, STRESS;HX OF CAD, POSS TIA, HTN, PACEMAKER, STENT, POLYCYSTIC KIDNEY DISEASE, ABD HERNIA, BIPOLAR;PT STATES HE NEEDS ATIVAN UNTIL SUNDAY BEFORE SEEING HIS PRIMARY DRINGRID N/V/D; SKIN IS PINK/WARM/DRY; AAOX4 WITH EVEN AND STEADY GAIT; LUNGS CLEAR BL; HR EVEN AND REGULAR; PT DENIES ANY FEVER, CP, SOB, OR COUGH AT THIS TIME; PATIENT STATES PAIN OF 0/10 AT THIS TIME;PATIENT POSITIONED FOR COMFORT; HOB ELEVATED; BEDRAILS UP X2; BED DOWN. ER MD MADE AWARE OF PT STATUS.
--- NOTE | 2016-09-30 16:38 | NUR ---
PATIENT BEING EVALUATED BY DR. COOPER.
[2016-09-30] MEDS ORDERED: LORazepam 1 MG TAB PO ONE (16:50)
--- NOTE | 2016-09-30 16:55 | NUR ---
WENT TO RESTROOM
--- NOTE | 2016-09-30 17:06 | NUR ---
ASKED PT IF HE IS NOT FEELING SLEEPY/DIZZY.PT STATES "NO" I'M OKAY" .
[2016-09-30 17:09] VITALS: BP 144/74
== END 2016-09-30 17:09 | disposition home or self-care (01) ==
LOC: MED 16:02
DX: F41.9 Anxiety disorder, unspecified (principal); R51 Headache; R22.0 Localized swelling, mass and lump, head; J45.909 Unspecified asthma, uncomplicated; I10 Essential (primary) hypertension; Z95.0 Presence of cardiac pacemaker; Z79.899 Other long term (current) drug therapy
CPT/HCPCS: 99284

== ENCOUNTER 2016-11-20 18:01 | Emergency (ER) | payer OTHER ==
[~2016-11-20] VITALS: Ht 170.2 cm; Wt 129.4 kg
[~2016-11-20 18:01] MED LIST changes: +ARIP20TA1 PO; -ARIP20TA16 PO; +CARB1TAB37 PO; -SIN25100 PO; +[UNRECOGNIZED DRUG - CODE] PO; -[UNRECOGNIZED DRUG - CODE] PO
[2016-11-20 18:12] VITALS: BP 156/107
[2016-11-20 19:23] LABS: EOSINOPHILS # (AUTO) 0.3 K/uL (0-0.4); WHITE BLOOD COUNT (AUTO) 10.9 K/uL (4.8-10.8)
[2016-11-20 19:26] LABS: BASOPHILS # (AUTO) 0.7 K/uL (0.00-0.22); HEMATOCRIT 49.1 % (36-52); HEMOGLOBIN 16.1 g/dL (12.0-18.0); LYMPHOCYTES # (AUTO) 1.8 K/uL (2.0-11.5); MEAN CORPUSCULAR HEMOGLOBIN 33 pg (27-31); MEAN CORPUSCULAR HGB CONC 33 g/dL (33-37); MEAN CORPUSCULAR VOLUME 100 fL (80-94); MONOCYTES # (AUTO) 0.8 K/uL (0.8-1.0); NEUTROPHILS # (AUTO) 7.3 K/uL (1.8-7.7); PLATELET COUNT (AUTO) 186 K/uL (140-450); RED BLOOD CELL COUNT(AUTO) 4.92 MIL/uL (4.20-6.10)
--- NOTE | 2016-11-20 19:27 | NUR ---
TO ER BED 3
--- NOTE | 2016-11-20 19:30 | NUR ---
Patient being evaluated by DR. ROBIN at bedside.
[2016-11-20] MEDS ORDERED: IPRATROPIUM 0.02% 0.5 MG/2.5 ML NEBU INH ONE (19:40)
[2016-11-20] MEDS ORDERED: ALBUTEROL 0.083% 2.5 MG/3 ML NEBU INH ONE (19:40)
[2016-11-20 19:44] LABS: PROTHROMBIN TIME 11.1 secs (10.8-13.4)
[2016-11-20 19:50] LABS: ANION GAP 11.9 (8-16); CARBON DIOXIDE 29.8 mmol/L (21-32); CREATININE 1.4 mg/dL (0.7-1.3); POTASSIUM 4.7 mmol/L (3.5-5.1)
[2016-11-20 19:54] LABS: ALBUMIN 3.5 g/dL (3.4-5.0); TOTAL BILIRUBIN 0.4 mg/dL (0.0-1.0)
--- NOTE | 2016-11-20 20:04 | NUR ---
61Y/M PATIENT PRESENTS TO ED WITH C/O SOB X 1 DAY. HX. AFIB, STENT. DENIES N/V/D, NO FEVER ; SKIN IS PINK/WARM/DRY; AAOX4 WITH EVEN AND STEADY GAIT; LUNGS CLEAR BL; HR EVEN AND REGULAR; PT DENIES ANY FEVER, CP, SOB, OR COUGH AT THIS TIME; PATIENT STATES PAIN OF 0/10 AT THIS TIME; VSS; PATIENT POSITIONED FOR COMFORT; HOB ELEVATED; BEDRAILS UP X2; BED DOWN. ER MD MADE AWARE OF PT STATUS.
[2016-11-20 20:51] VITALS: BP 119/70
--- NOTE | 2016-11-20 20:52 | NUR ---
Patient discharged with v/s stable. Written and verbal after care instructions given and explained. Patient alert, oriented and verbalized understanding of instructions. Ambulatory with steady gait. All questions addressed prior to discharge. ID band removed. Patient advised to follow up with PMD. Rx of PREDNISONE 20 MG given. Patient educated on indication of medication including possible reaction and side effects. Opportunity to ask questions provided and answered.
== END 2016-11-20 20:52 | disposition home or self-care (01) ==
LOC: MED 18:01
DX: J44.1 Chronic obstructive pulmonary disease with (acute) exacerbation (principal); K42.9 Umbilical hernia without obstruction or gangrene; R60.9 Edema, unspecified; Z86.73 Personal history of transient ischemic attack (TIA), and cerebral infarction without residual deficits; F31.9 Bipolar disorder, unspecified
CPT/HCPCS: 36415; 71010; 80053; 83880; 84484; 85025; 85610; 85730; 93005; 99285; J7613; J7644; Q0092; 94640

== ENCOUNTER 2017-02-10 12:00 | Emergency (ER) | payer OTHER ==
[~2017-02-10] VITALS: Ht 170.2 cm; Wt 131.5 kg
[2017-02-10 12:14] VITALS: BP 158/81
--- NOTE | 2017-02-10 12:18 | NUR ---
PT TRIAGED, AMBULATED TO ER LOBBY WAITING FOR ER BED. ERMD AWARE OF PATIENT STATUS.
--- NOTE | 2017-02-10 14:15 | NUR ---
PT TRIAGED, WAITING FOR ER BED. ERMD AWARE OF PATIENT STATUS.
--- NOTE | 2017-02-10 16:15 | NUR ---
PT TRIAGED, AAOx4, WAITING FOR ER BED. ERMD AWARE OF PATIENT STATUS.
--- NOTE | 2017-02-10 17:22 | NUR ---
PATIENT LEFT WITHOUT BEING SEEN BY DR. BURNS. NO FURTHER CARE PROVIDED FOR PATIENT.
== END 2017-02-10 17:23 | disposition left against medical advice (07) ==
LOC: MED 12:00
DX: Z53.21 Procedure and treatment not carried out due to patient leaving prior to being seen by health care provider (principal)

== ENCOUNTER 2017-06-02 05:59 | Emergency (ER) | payer OTHER ==
[~2017-06-02] VITALS: Ht 170.2 cm; Wt 129.3 kg
[~2017-06-02 05:59] MED LIST changes: -DIGO0.121 PO; +DIGO0.122 PO; +METO-748 PO; -[UNRECOGNIZED DRUG - CODE] PO
[2017-06-02 06:04] VITALS: BP 139/50
[2017-06-02] MEDS: LORazepam 1 MG TAB PO ONE (06:46)
[2017-06-02 07:34] VITALS: BP 110/73
== END 2017-06-02 07:34 | disposition home or self-care (01) ==
LOC: MED 05:59
DX: F41.8 Other specified anxiety disorders (principal); J45.909 Unspecified asthma, uncomplicated; I63.9 Cerebral infarction, unspecified; J44.9 Chronic obstructive pulmonary disease, unspecified; I10 Essential (primary) hypertension; Z95.0 Presence of cardiac pacemaker
CPT/HCPCS: 99284

== ENCOUNTER 2017-06-30 16:07 | Emergency (ER) | payer OTHER ==
[~2017-06-30] VITALS: Ht 170.2 cm; Wt 131.5 kg
[~2017-06-30 16:07] MED LIST changes: -ATI.5 PO; -BUDE1AER IH; -DIGO0.122 PO; -FLO44 INH; -IPRA3AMP IH; -PRED10TA6 PO; -ROBDM PO
[2017-06-30 16:09] VITALS: BP 128/89
[2017-06-30] MEDS: NACL 0.9% 1,000 ML IV ONE (16:46)
[2017-06-30] MEDS: FAMOTIDINE 20 MG/2 ML VIAL IVP ONE (17:08)
[2017-06-30] MEDS: KETOROLAC 30 MG/ML VIAL IVP ONE (17:09)
[2017-06-30 17:23] LABS: BASOPHILS % (AUTO) 0.3 % (0.0-2.0); EOSINOPHILS # (AUTO) 0.3 K/uL (0-0.4); EOSINOPHILS % (AUTO) 2.8 % (0.0-4.0); HEMATOCRIT 47.5 % (36-52); HEMOGLOBIN 15.9 g/dL (12.0-18.0); LYMPHOCYTES # (AUTO) 2.3 K/uL (2.0-11.5); LYMPHOCYTES % (AUTO) 21.4 % (20.5-51.1); MEAN CORPUSCULAR HEMOGLOBIN 33 pg (27-31); MEAN CORPUSCULAR HGB CONC 34 g/dL (33-37); MEAN CORPUSCULAR VOLUME 97.2 fL (80-94); MONOCYTES % (AUTO) 9.4 % (1.7-9.3); NEUTROPHILS # (AUTO) 7.1 K/uL (1.8-7.7); NEUTROPHILS % (AUTO) 66.1 % (42.2-75.2); PLATELET COUNT (AUTO) 179 K/uL (140-450); RED BLOOD CELL COUNT(AUTO) 4.88 MIL/uL (4.20-6.10); RED CELL DISTRIBUTION WIDTH 15.2 % (11.6-13.7); WHITE BLOOD COUNT (AUTO) 10.7 K/uL (4.8-10.8)
[2017-06-30 17:41] LABS: ANION GAP 11.3 (8-16); CREATININE 1.5 mg/dL (0.7-1.3); POTASSIUM 4.3 mmol/L (3.5-5.1)
[2017-06-30 17:44] LABS: PROTHROMBIN TIME 11.6 secs (10.8-13.4)
[2017-06-30] MEDS: LORazepam 1 MG TAB PO ONE (17:45)
[2017-06-30 17:47] LABS: ALBUMIN 3.1 g/dL (3.4-5.0); TOTAL BILIRUBIN 0.5 mg/dL (0.0-1.0)
[2017-06-30 18:35] VITALS: BP 128/65
== END 2017-06-30 18:35 | disposition home or self-care (01) ==
LOC: MED 16:07
DX: F41.9 Anxiety disorder, unspecified (principal); R11.0 Nausea; G20 Parkinson's disease; J44.9 Chronic obstructive pulmonary disease, unspecified; I11.0 Hypertensive heart disease with heart failure; I50.9 Heart failure, unspecified; I48.91 Unspecified atrial fibrillation; Z86.73 Personal history of transient ischemic attack (TIA), and cerebral infarction without residual deficits; Z95.1 Presence of aortocoronary bypass graft; Z79.899 Other long term (current) drug therapy
CPT/HCPCS: 36415; 71045; 80053; 83880; 84484; 85025; 85610; 85730; 93005; 96374; 96375; 99285; J3490; Q0092; 96361

== ENCOUNTER 2017-07-16 01:54 | Emergency (ER) | payer OTHER ==
[~2017-07-16] VITALS: Ht 170.2 cm; Wt 131.5 kg
[2017-07-16 01:56] VITALS: BP 147/79
--- NOTE | 2017-07-16 02:01 | NUR ---
TO BED # 3 AMBULATORY, REPORT GIVEN TO RAD TRAN.
--- NOTE | 2017-07-16 02:04 | NUR ---
PT TAKEN TO BED 4
--- NOTE | 2017-07-16 02:30 | NUR ---
PT COMES TO ER C/O ABD PAIN AND N/V X2 DAYS. ABD IS ROUND, FIRM, NON TENDER, ACTIVE BS X4. PT APPEARS TO BE IN NO ACUTE DISTRESS AT THIS TIME. PT LAYING IN BED, SIDE RAIL UP X1.
--- NOTE | 2017-07-16 02:40 | NUR ---
Dr. Torres evaluating patient at bedside.
[2017-07-16] MEDS ORDERED: NACL 0.9% 1,000 ML IV SCH (02:56)
[2017-07-16] MEDS ORDERED: METOCLOPRAMIDE 10 MG/2 ML INJ VIAL IVP ONE (03:00)
[2017-07-16 03:30] LABS: BASOPHILS # (AUTO) 0.1 K/uL (0.00-0.22); BASOPHILS % (AUTO) 0.4 % (0.0-2.0); EOSINOPHILS # (AUTO) 0.4 K/uL (0-0.4); EOSINOPHILS % (AUTO) 2.4 % (0.0-4.0); HEMATOCRIT 52.2 % (36-52); HEMOGLOBIN 17.3 g/dL (12.0-18.0); LYMPHOCYTES # (AUTO) 1.6 K/uL (2.0-11.5); MEAN CORPUSCULAR HEMOGLOBIN 32 pg (27-31); MEAN CORPUSCULAR HGB CONC 33 g/dL (33-37); MEAN CORPUSCULAR VOLUME 97.1 fL (80-94); MONOCYTES % (AUTO) 5.7 % (1.7-9.3); NEUTROPHILS # (AUTO) 13.8 K/uL (1.8-7.7); NEUTROPHILS % (AUTO) 81.8 % (42.2-75.2); PLATELET COUNT (AUTO) 190 K/uL (140-450); RED BLOOD CELL COUNT(AUTO) 5.38 MIL/uL (4.20-6.10); RED CELL DISTRIBUTION WIDTH 14.9 % (11.6-13.7); WHITE BLOOD COUNT (AUTO) 16.8 K/uL (4.8-10.8)
[2017-07-16 03:37] LABS: ANION GAP 10.2 (8-16); CARBON DIOXIDE 27.4 mmol/L (21-32); CREATININE 1.6 mg/dL (0.7-1.3); POTASSIUM 4.6 mmol/L (3.5-5.1)
[2017-07-16 03:39] LABS: APPEARANCE,URINE CLEAR (CLEAR); BILIRUBIN,URINE NEGATIVE (NEGATIVE); BLOOD, URINE NEGATIVE (NEGATIVE); COLOR,URINE YELLOW (YELLOW); LEUKOCYTE ESTERASE ,URINE NEGATIVE (NEGATIVE); NITRITE, URINE NEGATIVE (NEGATIVE); PH,URINE 5.5 (5.0-9.0); UGLUCOSE NEGATIVE (NEGATIVE)
[2017-07-16 03:43] LABS: ALBUMIN 3.2 g/dL (3.4-5.0); TOTAL BILIRUBIN 0.6 mg/dL (0.0-1.0)
[2017-07-16 03:45] LABS: LYMPHOCYTES % (AUTO) 9.7 % (20.5-51.1)
[2017-07-16 04:02] LABS: RBC,URINE 0-5 (RARE) /HPF (0-5); WBC,URINE 0-5 (RARE) /HPF (0-5)
[2017-07-16 04:40] VITALS: BP 145/80
--- NOTE | 2017-07-16 04:40 | NUR ---
Patient discharged with v/s stable. Written and verbal after care instructions given and explained. Patient alert, oriented and verbalized understanding of instructions. Ambulatory with steady gait. All questions addressed prior to discharge. ID band removed. Patient advised to follow up with PMD. Rx of JERMAINE WOLFE given. Patient educated on indication of medication including possible reaction and side effects. Opportunity to ask questions provided and answered.
== END 2017-07-16 04:40 | disposition home or self-care (01) ==
LOC: MED 01:54
DX: R10.9 Unspecified abdominal pain (principal); R11.2 Nausea with vomiting, unspecified; J45.909 Unspecified asthma, uncomplicated; I48.91 Unspecified atrial fibrillation; J44.9 Chronic obstructive pulmonary disease, unspecified; I10 Essential (primary) hypertension; Z86.73 Personal history of transient ischemic attack (TIA), and cerebral infarction without residual deficits; Z95.0 Presence of cardiac pacemaker; Z79.899 Other long term (current) drug therapy
CPT/HCPCS: 36415; 80053; 81001; 83690; 85025; 96361; 96374; 99284; J2765

== ENCOUNTER 2018-01-19 14:57 | Inpatient (IN) | payer OTHER ==
[~2018-01-19] VITALS: Ht 170.2 cm; Wt 112.5 kg
[~2018-01-19 14:57] MED LIST changes: -SPIR25TA13 PO; +SPIR25TA20 PO; -TRAZ-289 PO; +TRAZ100T77 PO
[2018-01-19 15:09] VITALS: BP 144/101
--- NOTE | 2018-01-19 15:09 | NUR ---
PATIENT AMB. TO BED #10 WITH NURSE
--- NOTE | 2018-01-19 15:10 | NUR ---
AAO PT C/O SOB/COUGH X 3DAYS; LUNG SOUND DIMINISHED ANTERIOR UPPER. DENIES PAIN,DENIES VOMITING. PER PT AMBULATES FROM RESIDENT; DID NOT WANT TO CALL AMBULANCE FOR HELP; HX: ASTHMA,PARKINSON,POLYCYSTIC KIDNEY DEASEASE,PACER,HEART STENT PLACEMENT,HTN,ABD. HERNIA,FASCITIS
--- NOTE | 2018-01-19 15:13 | NUR ---
Patient being evaluated by physician at bedside.
[2018-01-19] MEDS ORDERED: ALBUTEROL SULFATE/IPRATROPIU 3 ML SOL IH ONE (15:15)
[2018-01-19] MEDS ORDERED: NACL 0.9% 1,000 ML IV ONE (15:15)
[2018-01-19 15:43] LABS: BASOPHILS % (AUTO) 0.5 % (0.0-2.0); EOSINOPHILS # (AUTO) 0.3 K/uL (0-0.4); EOSINOPHILS % (AUTO) 3.2 % (0.0-4.0); HEMATOCRIT 50.3 % (36-52); HEMOGLOBIN 16.6 g/dL (12.0-18.0); LYMPHOCYTES % (AUTO) 23.4 % (20.5-51.1); MEAN CORPUSCULAR HEMOGLOBIN 33 pg (27-31); MEAN CORPUSCULAR HGB CONC 33 g/dL (33-37); MEAN CORPUSCULAR VOLUME 101.1 fL (80-94); MONOCYTES # (AUTO) 0.8 K/uL (0.8-1.0); NEUTROPHILS # (AUTO) 5.4 K/uL (1.8-7.7); NEUTROPHILS % (AUTO) 63.9 % (42.2-75.2); PLATELET COUNT (AUTO) 189 K/uL (140-450); RED BLOOD CELL COUNT(AUTO) 4.98 MIL/uL (4.20-6.10); RED CELL DISTRIBUTION WIDTH 15.2 % (11.6-13.7); WHITE BLOOD COUNT (AUTO) 8.5 K/uL (4.8-10.8)
--- NOTE | 2018-01-19 15:43 | NUR ---
XRAY AT BEDSIDE
--- NOTE | 2018-01-19 15:44 | NUR ---
XRAY AT BEDSIDE.
[2018-01-19 15:53] LABS: ANION GAP 10.2 (8-16); CARBON DIOXIDE 34.3 mmol/L (21-32); CREATININE 1.3 mg/dL (0.7-1.3); POTASSIUM 4.5 mmol/L (3.5-5.1)
[2018-01-19 15:59] LABS: TOTAL BILIRUBIN 0.6 mg/dL (0.0-1.0)
[2018-01-19 16:03] LABS: PROTHROMBIN TIME 10.9 secs (10.8-13.4)
--- NOTE | 2018-01-19 16:05 | NUR ---
AAO PT ABLE TO VOID AND PROVIDE URINE SPECIMEN, SAMPLE SEND TO THE LAB
[2018-01-19] MEDS ORDERED: PIPERACILLIN/TAZOBACTAM 3.375 GM in DEXTROSE 5% 50 ML IV ONE (16:10)
[2018-01-19 16:15] LABS: APPEARANCE,URINE CLEAR (CLEAR); BILIRUBIN,URINE NEGATIVE (NEGATIVE); BLOOD, URINE NEGATIVE (NEGATIVE); COLOR,URINE YELLOW (YELLOW); LEUKOCYTE ESTERASE ,URINE NEGATIVE (NEGATIVE); NITRITE, URINE NEGATIVE (NEGATIVE); PH,URINE 6.5 (5.0-9.0); UGLUCOSE NEGATIVE (NEGATIVE)
--- NOTE | 2018-01-19 16:23 | NUR ---
TALK TO JOSE MANUEL FROM [facility] [employer] REGARDING DX AND ER GIVEN. CASE MANAGEMENT WILL CALL BACK PER JOSE MANUEL TO PHONE NUMBER [phone] DIRECT LINE PROVIDED Addendum: 01/19/18 at 1751 by ANGELICA [phone]
[2018-01-19] MEDS ORDERED: PIPERACILLIN/TAZOBACTAM 3.375 GM VIAL IV ONE (16:24)
--- NOTE | 2018-01-19 16:50 | NUR ---
TALK TO SAP SOLUTION MANAGER CONSULTANT JASWINDER FROM [facility], QUESTIONS ANSWERED/GIVEN CHIEF COMPLAINT, VSS, LABS, HX, DX; NEED ALL PERTINENT INFORMATION FAX TO [phone], CALL BACK NUMBER [phone]; ALL PERTINENT MEDICAL INFORMATION FAX TO ABOVE NUMBER BY DAMION PAIZ REQUESTED BY SAP SOLUTION MANAGER CONSULTANT JASWINDER; WILL CALL BACK FOR APPROVAL PER SAP SOLUTION MANAGER CONSULTANT.
--- NOTE | 2018-01-19 16:50 | NUR ---
Zulma gaines in [facility] - 01/19/18 at 1655 by KEN TALK TO BASS VIOL REPAIRER JASWINDER FROM [facility], NEED ALL PERTINENT INFORMATION FAX TO [phone], CALL BACK NUMBER [phone]; ALL PERTINENT MEDICAL INFORMATION FAX TO ABOVE NUMBER BY DAMION PAIZ REQUESTED BY BASS VIOL REPAIRER JASWINDER; WILL CALL BACK FOR APPROVAL PER BASS VIOL REPAIRER
--- NOTE | 2018-01-19 17:49 | NUR ---
DAMION PAIZ RECEIVED CALL BACK FROM HAND LAMINATOR JASWINDER FOR APPROVAL FOR PT TO BE ADMITTED
[2018-01-19] MEDS ORDERED: ALBUTEROL 0.083% 2.5 MG/3 ML NEBU INH PRN (17:55)
[2018-01-19] MEDS ORDERED: MORPHINE SULFATE 4 MG/ML SYR IVP PRN (17:55)
[2018-01-19] MEDS ORDERED: ONDANSETRON 4 MG/2 ML VIAL IVP PRN (17:55)
[2018-01-19] MEDS ORDERED: MORPHINE SULFATE 2 MG/ML SYR IVP PRN (17:55)
--- NOTE | 2018-01-19 18:16 | NUR ---
PT TAKEN TO MED FLOOR BY YVETTE MENJIVAR
[2018-01-19 18:23] VITALS: BP 123/81
--- NOTE | 2018-01-19 18:23 | NUR ---
RECEIVED REPORT FROM ED RN. PT IN STABLE CONDITION. ABLE TO AMBULATE FROM GURNEY TO BED. FALL RISK DUE TO HX FALLS AND PARKINSONS. LUE WEAKNESS NOTED. TREMORS BASELINE. SKIN INTACT. DENIES SOB AT THIS TIME. LUNGS CTA. NO WHEEZING UPON AUSCULTATION. DENIES PAIN AND DISCOMFORT. VITALS STABLE. IV SITE PATENT AND ASYMPTOMATIC. ALL SAFETY PRECAUTIONS IN PLACE, WILL CONTINUE TO MONITOR.
--- NOTE | 2018-01-19 18:23 | NUR ---
PT. ADMITTED TO [facility], GAVE REPORT TO JANELLE TRAN.
--- NOTE | 2018-01-19 18:30 | NUR ---
PT. ROOM 119A, ADMITTED BY DR. GODWIN.
--- NOTE | 2018-01-19 19:26 | NUR ---
ENDORSED POC TO CONCRETE WALL GRINDER OPERATOR RN. PT IN STABLE CONDITION.
--- NOTE | 2018-01-19 19:27 | NUR ---
RECEIVED REPORT FROM DAY SHIFT RN. PT A&OX4. RESPIRATIONS ARE EQUAL AND UNLABORED. PT DENIES SOB AT THIS TIME. SKIN IS INTACT. LUE WEAKNESS NOTED. PT ON FALL PRECAUTION IN PLACE D/T TREMORS, PARKINSON. IV ON R AC 22G SALINE LOCK DRESSING CLEAN DRY AND INTACT. PT WITH HERNIA IN ABDOMEN. BOWEL SOUNDS HYPOACTIVE.POC DISCUSSED. PT VERBALIZED UNDERSTANDING. CALL LIGHT WITHIN REACH.
[2018-01-19] MEDS: IPRATROPIUM 0.02% 0.5 MG/2.5 ML NEBU INH SCH (20:14)
[2018-01-19] MEDS: ALBUTEROL 0.083% 2.5 MG/3 ML NEBU INH SCH (20:14)
--- NOTE | 2018-01-19 23:49 | NUR ---
ZOSYN INFUSING PER ORDERS. PT TOLERATED WELL. CALL LIGHT WITHIN REACH
[2018-01-19] MEDS ORDERED: PIPERACILLIN/TAZOBACTAM 2.25 GM VIAL IV ONE ×2 (23:52)
[2018-01-20] VITALS: BP 136/91
[2018-01-20] MEDS ORDERED: PIPERACILLIN/TAZOBACTAM 2.25 GM in DEXTROSE 5% 50 ML IV SCH ×2
--- NOTE | 2018-01-20 | NUR ---
VITAL SIGNS ARE WITHIN NORMAL LIMITS. ALL NEEDS MET AT THIS TIME.
[2018-01-20] MEDS: ALBUTEROL 0.083% 2.5 MG/3 ML NEBU INH SCH ×4 (00:57→20:41)
[2018-01-20] MEDS: IPRATROPIUM 0.02% 0.5 MG/2.5 ML NEBU INH SCH ×4 (00:57→20:41)
--- NOTE | 2018-01-20 03:08 | NUR ---
PAIN MEDICATION GIVEN. PT TOLERATED WELL. ALL SAFETY MEASURES IN PLACE. CALL LIGHT WITHIN REACH.
--- NOTE | 2018-01-20 04:08 | NUR ---
PT SLEEPING. NO DISTRESS NOTED. RESPIRATIONS ARE EQUAL AND UNLABORED. ALL SAFETY MEASURES IN PLACE. CALL LIGHT WITHIN REACH.
--- NOTE | 2018-01-20 05:40 | NUR ---
PT ASLEEP. RESPIRATIONS ARE EQUAL AND UNLABORED. NO DISTRESS NOTED. SAFETY MEASURES IN PLACE. WILL CONTINUE TO MONITOR.
--- NOTE | 2018-01-20 07:25 | NUR ---
ENDORSED PT TO DAY SHIFT RN. PT IN STABLE CONDITION.
--- NOTE | 2018-01-20 07:30 | NUR ---
RECEIVED PT FROM EXTRACORPOREAL TECHNICIAN NURSEARON, PT IS AWAKE AND SEATED ON THE BED WITH SIDE RAILS UP AND CALL LIGHT WITHIN REACH, PT HAS AN IV LINE ON THE RT AC G.22 AT 10ML/HR OF NS INFUSING, PT DENIES PAIN BUT TREMORS WAS NOTED ON THE LEFT HAND, FALL PRECAUTION INITIATED AND NO SIGN OF DISTRESS NOTED. WILL CONTINUE TO MONITOR PT.
[2018-01-20 07:59] LABS: BASOPHILS % (AUTO) 0.4 % (0.0-2.0); EOSINOPHILS # (AUTO) 0.4 K/uL (0-0.4); EOSINOPHILS % (AUTO) 4.2 % (0.0-4.0); HEMATOCRIT 48.4 % (36-52); HEMOGLOBIN 15.9 g/dL (12.0-18.0); LYMPHOCYTES # (AUTO) 2.5 K/uL (2.0-11.5); LYMPHOCYTES % (AUTO) 29.3 % (20.5-51.1); MEAN CORPUSCULAR HEMOGLOBIN 33 pg (27-31); MEAN CORPUSCULAR HGB CONC 33 g/dL (33-37); MEAN CORPUSCULAR VOLUME 100.9 fL (80-94); MONOCYTES # (AUTO) 0.7 K/uL (0.8-1.0); MONOCYTES % (AUTO) 8.1 % (1.7-9.3); NEUTROPHILS # (AUTO) 4.9 K/uL (1.8-7.7); PLATELET COUNT (AUTO) 173 K/uL (140-450); RED BLOOD CELL COUNT(AUTO) 4.79 MIL/uL (4.20-6.10); RED CELL DISTRIBUTION WIDTH 15.4 % (11.6-13.7); WHITE BLOOD COUNT (AUTO) 8.5 K/uL (4.8-10.8)
[2018-01-20 08:00] VITALS: BP 139/70
[2018-01-20 08:16] LABS: ALBUMIN 2.8 g/dL (3.4-5.0); ANION GAP 11.8 (8-16); CARBON DIOXIDE 32.3 mmol/L (21-32); CREATININE 1.3 mg/dL (0.7-1.3); POTASSIUM 4.1 mmol/L (3.5-5.1); TOTAL BILIRUBIN 0.7 mg/dL (0.0-1.0)
[2018-01-20] MEDS: predniSONE 20 MG TAB PO SCH (08:20)
[2018-01-20] MEDS: PIPER/TAZO 2.25GM/D5W PREMIX 50 ML IV SCH ×3 (08:20→23:36)
--- NOTE | 2018-01-20 08:31 | NUR ---
PT IS AWAKE AND SEATED ON THE BED EATING HIS BREAKFAST, V/S TAKEN AND BP RESULT IS 157/111 AND PT DENIES PAIN. IV AND ORAL MEDICATION GIVEN, PT TOLERATED IT AND NO SIGN OF DISTRESS NOTED. WILL CONTINUE TO MONITOR PT.
[2018-01-20] MEDS ORDERED: ENOXAPARIN 40 MG/0.4 ML SYR SUBQ SCH (09:00)
[2018-01-20] MEDS ORDERED: DEXT 5% / NACL 0.45% 1,000 ML IV SCH (13:20)
--- NOTE | 2018-01-20 13:27 | NUR ---
SPOKE TO DR. GODWIN AND TOLD HER THAT PT IS HAVING ANXIETY ATTACK AND WANTS MEDICATION, SAID THAT SHE WILL SEE PT. ACKNOWLEDGED AND WILL WAIT FOR MD.
[2018-01-20] MEDS ORDERED: NITROGLYCERIN 0.4 MG TAB SL PRN (13:50)
[2018-01-20] MEDS ORDERED: FUROSEMIDE 40 MG/4 ML VIAL IVP SCH ×2 (14:00→17:00)
--- NOTE | 2018-01-20 14:00 | NUR ---
DR. GODWIN CAME TO THE PT'S ROOM AND SPOKE TO PT.
--- NOTE | 2018-01-20 15:35 | NUR ---
PT IS OFF UNIT NOW FOR A CT OF THE CHEST WITHOUT CONTRAST.
[2018-01-20 16:00] VITALS: BP 125/77
[2018-01-20] MEDS: CARBIDOPA/LEVODOPA 25/100 MG 1 TAB PO SCH (18:01)
--- NOTE | 2018-01-20 18:02 | NUR ---
PT IS AWAKE AND EATING HER DINNER, ORAL MEDICATION GIVEN AND PT TOLERATED IT. NO SIGN OF DISTRESS NOTED AND WILL CONTINUE TO MONITOR.
--- NOTE | 2018-01-20 19:35 | NUR ---
ENDORSED PT TO TELESALES SUPERVISOR NURSEARON FOR CONTINUITY OF CARE, PT TIS STABLE AT THIS TIME.
--- NOTE | 2018-01-20 19:36 | NUR ---
RECEIVED REPORT FROM DAY SHIFT RN. PT A&OX4. RESPIRATIONS ARE EQUAL AND UNLABORED. PT DENIES SOB AT THIS TIME. NC AT 2L. SKIN IS INTACT.IV ON R AC 22G SALINE LOCK DRESSING CLEAN DRY AND INTACT. PT WITH HERNIA IN ABDOMEN. BOWEL SOUNDS HYPOACTIVE.POC DISCUSSED. PT VERBALIZED UNDERSTANDING. CALL LIGHT WITHIN REACH. ALL NEEDS MET AT THIS TIME.
--- NOTE | 2018-01-20 20:53 | NUR ---
RECEIVED PATIENT ON 2L NC, 02 SAT 95%. SCHEDULED BREATHING TREATMENTS ADMINISTERED. TOLERATED TX WELL, NO ADVERSE SIDE EFFECTS. PLACED PATIENT ACK ON 2L NC POST TX. NO RESPIRATORY DISTRESS NOTED AT THIS TIME. WILL CONTINUE TO MONITOR.
[2018-01-20] MEDS: FUROSEMIDE 40 MG/4 ML VIAL IVP SCH (21:03)
--- NOTE | 2018-01-20 21:03 | NUR ---
DUE MEDICATIONS GIVEN PT TOLERATED WELL. ALL SAFETY MEASURES IN PLACE. WILL CONTINUE TO MONITOR. CALL LIGHT WITHIN REACH.
[2018-01-20] MEDS: DIVALPROEX 500 MG TABEC PO SCH (21:04)
[2018-01-20] MEDS: ATORVASTATIN 20 MG TAB PO SCH (21:04)
[2018-01-20] MEDS: APIXABAN 2.5 MG TAB PO SCH (21:08)
--- NOTE | 2018-01-20 21:24 | NUR ---
PATIENT PLACED ON CPAP. SKIN BARRIER GEL IN PLACE. SKIN INTACT, NO REDNESS. PATIENT TOLERATING CPAP WELL, NO COMPLAINTS OF DISCOMFORT. CPAP MACHINE PLUGGED INTO RED OUTLET. AMBU BAG AT BEDSIDE. CONTINUOUS PULSE OX PLACED ON PATIENT. CONT PULSE OX ON AND FUNCTIONING; ALARMS ON AND FUNCTIONING. NO RESPIRATORY DISTRESS NOTED AT THIS TIME. WILL CONTINUE TO MONITOR.
--- NOTE | 2018-01-20 22:10 | NUR ---
PATIENT REFUSING CPAP AT THIS TIME. PATIENT TAKEN OFF CPAP MACHINE AND PLACED ON 2L NC. O2 SAT 97%, HEART RATE 89. NO DISTRESS NOTED AT THIS TIME. WILL CONTINUE TO MONITOR.
--- NOTE | 2018-01-20 23:36 | NUR ---
ZOSYN INFUSING PER ORDERS. PT RESTING COMFORTABLY IN BED. VITAL SIGNS ARE WITHIN NORMAL LIMITS. ALL NEEDS MET AT THIS TIME. CALL LIGHT WITHIN REACH
[2018-01-20 23:55] VITALS: BP 141/81
--- NOTE | 2018-01-21 02:01 | NUR ---
PT RESTING COMFORTABLY IN BED. PT DENIES ANY SOB. ALL NEEDS MET AT THIS TIME. CALL LIGHT WITHIN REACH.
[2018-01-21] MEDS: IPRATROPIUM 0.02% 0.5 MG/2.5 ML NEBU INH SCH ×4 (02:22→19:26)
[2018-01-21] MEDS: ALBUTEROL 0.083% 2.5 MG/3 ML NEBU INH SCH ×4 (02:22→19:26)
--- NOTE | 2018-01-21 02:31 | NUR ---
SCHEDULED BREATHING TX ADMINISTERED. TOLERATED TX WELL, NO ADVERSE SIDE EFFECTS. PLACED BACK ON 2L NC POST TX. NO RESPIRATORY DISTRESS NOTED AT THIS TIME. WILL CONTINUE TO MONITOR.
--- NOTE | 2018-01-21 03:36 | NUR ---
PT RESTING COMFORTABLY IN BED. ALL NEEDS MET AT THIS TIME. CALL LIGHT WITHIN REACH.
--- NOTE | 2018-01-21 05:00 | NUR ---
PT SLEEPING COMFORTABLY IN BED. RESPIRATIONS ARE EQUAL AND UNLABORED. SAFETY MEASURES IN PLACE.
[2018-01-21] MEDS: FUROSEMIDE 40 MG/4 ML VIAL IVP SCH (05:46)
--- NOTE | 2018-01-21 05:49 | NUR ---
LASIX ADMINISTERED PER ORDERS. PT TOLERATED WELL.SAFETY MEASURES IN PLACE. WILL CONTINUE TO MONITOR.
--- NOTE | 2018-01-21 07:18 | NUR ---
REPORT RECEIVED FROM NIGHT NURSE. PT ASLEEP, EASILY AROUSABLE, A/O ABLE TO COMMUNICATE NEEDS, DENIES PAIN, DISCOMFORT, DENIES SOB. NO S/S OF ACUTE DISTRESS NOTED AT THIS TIME. CALL LIGHT AND SAFETY PRECAUTIONS IN PLACE. WILL CONTINUE TO MONITOR.
--- NOTE | 2018-01-21 07:18 | NUR ---
ENDORSED PATIENT TO DAY SHIFT RN. PT IN STABLE CONDITION.
[2018-01-21 07:50] LABS: BASOPHILS % (AUTO) 0.4 % (0.0-2.0); EOSINOPHILS # (AUTO) 0.2 K/uL (0-0.4); EOSINOPHILS % (AUTO) 1.4 % (0.0-4.0); HEMOGLOBIN 17.4 g/dL (12.0-18.0); LYMPHOCYTES # (AUTO) 2.5 K/uL (2.0-11.5); LYMPHOCYTES % (AUTO) 23.4 % (20.5-51.1); MEAN CORPUSCULAR HEMOGLOBIN 34 pg (27-31); MEAN CORPUSCULAR HGB CONC 34 g/dL (33-37); MEAN CORPUSCULAR VOLUME 100.2 fL (80-94); MONOCYTES # (AUTO) 0.9 K/uL (0.8-1.0); MONOCYTES % (AUTO) 8.8 % (1.7-9.3); NEUTROPHILS # (AUTO) 7.1 K/uL (1.8-7.7); PLATELET COUNT (AUTO) 193 K/uL (140-450); RED BLOOD CELL COUNT(AUTO) 5.19 MIL/uL (4.20-6.10); RED CELL DISTRIBUTION WIDTH 15.6 % (11.6-13.7); WHITE BLOOD COUNT (AUTO) 10.8 K/uL (4.8-10.8)
[2018-01-21 08:00] VITALS: BP 147/86
[2018-01-21] MEDS: PANTOPRAZOLE 40 MG INJ VIAL IVP SCH (08:41)
[2018-01-21] MEDS: PIPER/TAZO 2.25GM/D5W PREMIX 50 ML IV SCH ×2 (08:41→16:36)
[2018-01-21] MEDS: ARIPiprazole 10 MG TAB PO SCH (08:42)
[2018-01-21] MEDS: DILTIAZEM 120 MG CAPER PO SCH (08:43)
[2018-01-21] MEDS: AMIODARONE 200 MG TAB PO SCH (08:43)
[2018-01-21] MEDS: predniSONE 20 MG TAB PO SCH (08:43)
[2018-01-21] MEDS: SPIRONOLACTONE 25 MG TAB PO SCH (08:43)
[2018-01-21] MEDS: DIVALPROEX 500 MG TABEC PO SCH ×2 (08:44→20:10)
[2018-01-21] MEDS: APIXABAN 2.5 MG TAB PO SCH ×2 (08:46→20:19)
[2018-01-21] MEDS: METOPROLOL SUCCINATE 50 MG TABER PO SCH ×2 (08:47→20:09)
[2018-01-21] MEDS: BENAZEPRIL 20 MG TAB PO SCH (08:47)
[2018-01-21] MEDS: FLUoxetine 10 MG CAP PO SCH (08:47)
[2018-01-21] MEDS: CARBIDOPA/LEVODOPA 25/100 MG 1 TAB PO SCH ×3 (08:47→16:36)
[2018-01-21] MEDS ORDERED: traZODone 50 MG TAB PO SCH (09:00)
[2018-01-21 09:13] LABS: ALBUMIN 3.3 g/dL (3.4-5.0); ANION GAP 11.2 (8-16); CARBON DIOXIDE 33.7 mmol/L (21-32); CREATININE 1.5 mg/dL (0.7-1.3); POTASSIUM 3.9 mmol/L (3.5-5.1); TOTAL BILIRUBIN 0.9 mg/dL (0.0-1.0)
--- NOTE | 2018-01-21 10:00 | NUR ---
PT OOB TO CHAIR, REMAINS A/O ABLE TO COMMUNICATE NEEDS, DENIES PAIN, DISCOMFORT. NO S/S OF ACUTE DISTRESS NOTED AT THIS TIME. CALL LIGHT AND SAFETY PRECAUTIONS IN PLACE. WILL CONTINUE TO MONITOR.
--- NOTE | 2018-01-21 10:21 | NUR ---
PATIENT HAS BEEN SCREENED AND CATEGORIZED MODERATE NUTRITION RISK. PATIENT WILL BE SEEN WITHIN 3-5 DAYS OF ADMISSION. 01/22/18 01/24/[address]
--- NOTE | 2018-01-21 13:00 | NUR ---
PT OOB TO CHAIR REMAINS A/O ABLE TO COMMUNICATE NEEDS. PT DENIES SOB, PAIN OR DISCOMFORT. PERSONAL ITEMS, CALL LIGHT AND SAFETY MEASURES IN PLACE
[2018-01-21 16:00] VITALS: BP 105/60
--- NOTE | 2018-01-21 16:00 | NUR ---
PT RESTING COMFORTABLY IN BED, NO S/S OF PAIN, DISTRESS OR ACUTE DISCOMFORT NOTED AT THIS TIME. PERSONAL ITEMS AND CALL LIGHT WITHIN REACH, SAFETY PRECAUTIONS IN PLACE. WILL CONTINUE TO MONITOR
--- NOTE | 2018-01-21 19:31 | NUR ---
Pt a/o sitting at side of bed. pt denies sob or difficulty breathing. Call light and personal items in reach, safety measures in place. No s/s of acute distress noted at this time, report endorsed to next shift nurse Genesis.
--- NOTE | 2018-01-21 19:32 | NUR ---
RECEIVED BEDSIDE REPORT FROM DAY SHIFT NURSE FARAZ RN, PT STABLE, NO DISTRESS NOTED, IV TO RAC 22G PATENT, INTACT, SL, PT ON 2LPM O2 VIA NC, NO SOB, NO C/O PAIN, INITIAL ASSESSMENT DONE, ALL SAFETY PRECAUTION MET ,CALL LIGHT WITHIN REACH, WILL CONTINUE TO MONITOR.
[2018-01-21] MEDS: traZODone 50 MG TAB PO SCH (20:10)
[2018-01-21] MEDS: ATORVASTATIN 20 MG TAB PO SCH (20:10)
--- NOTE | 2018-01-21 20:10 | NUR ---
DUE MEDICATION ADMINISTERED, PT TOLERATED WELL, NO DISTRESS NOTED, CALL LIGHT WITHIN REACH, WILL CONTINUE TO MONITOR.
--- NOTE | 2018-01-21 23:20 | NUR ---
2300 PLACED PATIENT ON CPAP OF 5CM. PT WEARING A FULL FACE MASK. FIO2 IS SET AT 30%, SATS ARE 97% AT THIS TIME. PT TOLERATES MASK AT THIS TIME
[2018-01-22] VITALS: BP 105/65
--- NOTE | 2018-01-22 00:10 | NUR ---
DUE MEDICATION ADMINISTERED, PT TOLERATED WELL, V/S TAKEN, WNL, CALL LIGHT WITHIN REACH, WILL CONTINUE TO MONITOR.
[2018-01-22] MEDS: PIPER/TAZO 2.25GM/D5W PREMIX 50 ML IV SCH ×3 (00:16→16:18)
[2018-01-22] MEDS: ALBUTEROL 0.083% 2.5 MG/3 ML NEBU INH SCH ×5 (01:09→21:37)
[2018-01-22] MEDS: IPRATROPIUM 0.02% 0.5 MG/2.5 ML NEBU INH SCH ×5 (01:09→21:37)
--- NOTE | 2018-01-22 03:15 | NUR ---
CHECKED ON PT, PT SLEEPING, NO DISTRESS NOTED, CALL LIGHT WITHIN REACH, WILL CONTINUE TO MONITOR.
--- NOTE | 2018-01-22 04:20 | NUR ---
CHECKED ON PT, PT SLEEPING, NO DISTRESS NOTED, CALL LIGHT WITHIN REACH, WILL CONTINUE TO MONITOR.
--- NOTE | 2018-01-22 05:42 | NUR ---
0500 PT ASKED TO BE TAKEN OFF CPAP. PT PLACED BACK ON 2LNC
[2018-01-22] MEDS ORDERED: PNEUMOCOCCAL VACCINE 23 MCG/0.5 ML VIAL IMVAC PRN (06:55)
[2018-01-22] MEDS ORDERED: INFLUENZA VIRUS VACCINE QUAD 0.5 ML SYR IMVAC PRN (06:55)
[2018-01-22 06:59] LABS: BASOPHILS % (AUTO) 0.3 % (0.0-2.0); EOSINOPHILS # (AUTO) 0.1 K/uL (0-0.4); EOSINOPHILS % (AUTO) 0.7 % (0.0-4.0); HEMATOCRIT 49.7 % (36-52); HEMOGLOBIN 16.3 g/dL (12.0-18.0); LYMPHOCYTES # (AUTO) 2.5 K/uL (2.0-11.5); LYMPHOCYTES % (AUTO) 19.5 % (20.5-51.1); MEAN CORPUSCULAR HEMOGLOBIN 33 pg (27-31); MEAN CORPUSCULAR HGB CONC 33 g/dL (33-37); MEAN CORPUSCULAR VOLUME 100.5 fL (80-94); MONOCYTES % (AUTO) 8.2 % (1.7-9.3); NEUTROPHILS # (AUTO) 9.1 K/uL (1.8-7.7); NEUTROPHILS % (AUTO) 71.3 % (42.2-75.2); PLATELET COUNT (AUTO) 188 K/uL (140-450); RED BLOOD CELL COUNT(AUTO) 4.94 MIL/uL (4.20-6.10); RED CELL DISTRIBUTION WIDTH 15.2 % (11.6-13.7); WHITE BLOOD COUNT (AUTO) 12.7 K/uL (4.8-10.8)
--- NOTE | 2018-01-22 07:26 | NUR ---
ENDORSED PT TO DAY SHIFT NURSE ERNESTINE RN, PT STABLE NO DISTRESS NOTED, CALL LIGHT WITHIN REACH
--- NOTE | 2018-01-22 07:27 | NUR ---
Received bedside report from pm nurse Genesis. Pt lying in bed, AAOx3, no c/o discomfort, respirations even & nonlabored on O2 @ LPM via n/c. Call light within reach.
[2018-01-22 08:00] VITALS: BP 145/87
[2018-01-22] MEDS: CARBIDOPA/LEVODOPA 25/100 MG 1 TAB PO SCH ×3 (08:28→17:30)
[2018-01-22] MEDS: PANTOPRAZOLE 40 MG INJ VIAL IVP SCH (08:29)
[2018-01-22] MEDS: DIVALPROEX 500 MG TABEC PO SCH ×2 (08:29→21:45)
[2018-01-22] MEDS: DILTIAZEM 120 MG CAPER PO SCH (08:29)
[2018-01-22] MEDS: FLUoxetine 10 MG CAP PO SCH (08:29)
[2018-01-22] MEDS: ARIPiprazole 10 MG TAB PO SCH (08:30)
[2018-01-22] MEDS: SPIRONOLACTONE 25 MG TAB PO SCH (08:30)
[2018-01-22] MEDS: BENAZEPRIL 20 MG TAB PO SCH (08:30)
[2018-01-22] MEDS: predniSONE 20 MG TAB PO SCH (08:30)
[2018-01-22] MEDS: METOPROLOL SUCCINATE 50 MG TABER PO SCH ×2 (08:31→21:00)
[2018-01-22] MEDS: AMIODARONE 200 MG TAB PO SCH (08:31)
[2018-01-22] MEDS: APIXABAN 2.5 MG TAB PO SCH ×2 (08:32→21:48)
[2018-01-22] MEDS ORDERED: FUROSEMIDE 40 MG/4 ML VIAL IVP SCH (09:00)
[2018-01-22 09:12] LABS: PHOSPHORUS 4.5 mg/dL (2.5-4.9)
[2018-01-22 09:14] LABS: ANION GAP 11.1 (8-16); CARBON DIOXIDE 29.8 mmol/L (21-32); POTASSIUM 3.9 mmol/L (3.5-5.1)
[2018-01-22 09:15] LABS: ALBUMIN 2.8 g/dL (3.4-5.0); CREATININE 1.4 mg/dL (0.7-1.3); TOTAL BILIRUBIN 0.5 mg/dL (0.0-1.0)
--- NOTE | 2018-01-22 13:30 | NUR ---
O2 supp removed per Dr Herrera. SaO2 90-95% at rest in room air. Pt amb 1 lap around unit with SaO2 89-93% in room air, tachypneic. Guided pt to sit & rest on his bed. SaO2 90-95% in room air post activity. Pt states he feels fine. Call light within reach. Remains in room air with continuous SaO2 monitoring. Addendum: 01/22/18 at 1756 by Sia Wetzel RN Denia Campos Mgr notified of above.
--- NOTE | 2018-01-22 15:35 | NUR ---
SPOKE WITH THE PATIENT EARLIER. HE SAID THAT THE DOCTOR SPOKE ABOUT A FDC. HE SAID HE PREFERS TO GO HOME SINCE HE IS BEING FOLLOWED AT [facility]. I INFORMED HIM THAT DR. GODWIN WAS HERE AND TO SPEAK WITH HER. I DID GET AN ORDER FOR NEBULIZER AT HOME. I CALLED LEIGH ANN ESTEBAN AT [facility] AND SHE SAID SHE WOULD BE USING [employer] FOR THE NEBULIZER AND TO FIND OUT WHERE THE PATIENT WANTED THE NEBULIZER TO BE SENT. PER NURSE ERNESTINE, HE WANTS THE NEBULIZER SENT TO THE HOSPITAL. I FAXED THE ORDER TO [facility] ATTENTION LEIGH ANN ESTEBAN,
[2018-01-22 16:00] VITALS: BP 122/84
--- NOTE | 2018-01-22 16:10 | NUR ---
Pt asleep in bed, respirations even & nonlabored in room air. SaO2 91-94% in room air. Call light within reach.
--- NOTE | 2018-01-22 16:41 | NUR ---
ABLE TO SPEAK WITH LEIGH ANN FROM [facility]. SHE WILL CALL THE FLOOR ABOUT THE NEBULIZER.
--- NOTE | 2018-01-22 17:00 | NUR ---
Written & verbal discharge instructions provided to pt. Pt verbalized understanding. Awaiting delivery of nebulizer to hospital room. Per pt, his caregiver will come to pick him up for transport to his home. Pt stable, respirations even & nonlabored, no c/o discomfort.
--- NOTE | 2018-01-22 19:20 | NUR ---
Bedside report given to pm nurse Genesis.
--- NOTE | 2018-01-22 19:21 | NUR ---
RECEIVED BEDSIDE REPORT FROM DAY SHIFT NURSE ERNESTINE RN, PT STABLE, NO DISTRESS NOTED, PT SITTING BY BEDSIDE FULLY CLOTHED, PT READY TO GO HOME, IV HAS BEEN TAKEN OUT, WAITING FOR NEBULIZER TO BE DELIVERED. PT RESTING, NO DISTRESS NOTED, CALL LIGHT WITHIN REACH, INITIAL ASSESSMENT DONE, ALL SAFETY PRECAUTION MET, CALL LIGHT WITHIN REACH, WILL CONTINUE TO MONITOR.
--- NOTE | 2018-01-22 19:30 | NUR ---
PT WAITING TO LEAVE AND REFUSING TX
--- NOTE | 2018-01-22 20:18 | NUR ---
PT AMBULATED AROUND UNIT THEN BACK TO ROOM, TOLERATED WELL, NO DISTRESS NOTED, CALL LIGHT WITHIN REACH, WILL CONTINUE TO MONITOR.
[2018-01-22 21:00] VITALS: BP 132/83
[2018-01-22] MEDS: traZODone 50 MG TAB PO SCH (21:00)
[2018-01-22] MEDS: ATORVASTATIN 20 MG TAB PO SCH (21:45)
--- NOTE | 2018-01-22 21:48 | NUR ---
DUE MEDICATION ADMINISTERED, PT TOLERATED WELL, PER PT HE DOES NOT WANT TO TAKE THE TRAZODONE DUE TO HIM GOING HOME, AND PT REFUSED TO TAKE THE METOPROLOL HE STATED THAT HIS PRIMARY CARE PHYSICIAN ONLY ORDERS 100MG DAILY, AND DOES NOT WANT TO TAKE 400MG TOTAL DOSE OF METOPROLOL. PT RESTING, NO DISTRESS NOTED, CALL LIGHT WITHIN REACH, WILL CONTINUE TO MONITOR.
--- NOTE | 2018-01-22 22:20 | NUR ---
PERSONNEL FROM [facility] DELIVERED NEBULIZER TO PT, PT RECEIVED NEBULIZER AND WILL BRING IT HOME. Addendum: 01/22/18 at 2256 by Genesis Laird RN PERSONNEL EXPLAINED TO PT HOW TO USE THE NEBULIZER, PT STATED UNDERSTANDING, PT STATED NO NEED FURTHER INSTRUCTION, HE IS GOING TO READ THE INSTRUCTION MANUAL HIMSELF.
--- NOTE | 2018-01-22 22:30 | NUR ---
PT LEFT UNIT VIA WHEELCHAIR IN STABLE CONDITION, WALKED PT TO TAXI, VOUCHER SIGNED BY BURR FILER, PT IN STABLE CONDITION, NO DISTRESS NOTED. Addendum: 01/22/18 at 2240 by Genesis Laird RN ALL BELONGING WITH PT, NEBULIZER WITH PT.
== END 2018-01-22 22:30 | disposition home or self-care (01) | DRG 189 ==
LOC: MED 14:57 → MTU 17:58
PROVIDERS: ADMIT Hospitalist; ATTEND Hospitalist
PROC: 5A09357 Assistance with Respiratory Ventilation, Less than 24 Consecutive Hours, Continuous Positive Airway Pressure (ICD-10-PCS; 2018-01-21)
PROC: 3E0234Z Introduction of Serum, Toxoid and Vaccine into Muscle, Percutaneous Approach (ICD-10-PCS; principal; 2018-01-22)
PROC: 3E02340 Introduction of Influenza Vaccine into Muscle, Percutaneous Approach (ICD-10-PCS; 2018-01-22)
DX: J96.00 Acute respiratory failure, unspecified whether with hypoxia or hypercapnia (principal); J45.901 Unspecified asthma with (acute) exacerbation; E87.0 Hyperosmolality and hypernatremia; I13.0 Hypertensive heart and chronic kidney disease with heart failure and stage 1 through stage 4 chronic kidney disease, or unspecified chronic kidney disease; J98.11 Atelectasis; I50.42 Chronic combined systolic (congestive) and diastolic (congestive) heart failure; Z68.38 Body mass index [BMI] 38.0-38.9, adult; G47.33 Obstructive sleep apnea (adult) (pediatric); G20 Parkinson's disease; Z23 Encounter for immunization; I48.91 Unspecified atrial fibrillation; Z86.73 Personal history of transient ischemic attack (TIA), and cerebral infarction without residual deficits; J44.9 Chronic obstructive pulmonary disease, unspecified; Z95.0 Presence of cardiac pacemaker; N18.3 Chronic kidney disease, stage 3 (moderate); E11.22 Type 2 diabetes mellitus with diabetic chronic kidney disease; E78.5 Hyperlipidemia, unspecified; Z87.891 Personal history of nicotine dependence; E66.01 Morbid (severe) obesity due to excess calories
CPT/HCPCS: 36415; 71045; 71250; 80053; 81003; 82948; 83605; 83735; 83880; 84100; 84484; 85025; 85610; 85730; 87040; 87081; 90658; 90732; 93005; 94640; 94660; 96361; 96365; 99285; C9113; J1650; J1940; J2270; J2543; J7030; J7060; J7512; J7613; J7620; J7644; Q0092

== ENCOUNTER 2018-01-26 13:59 | Emergency (ER) | payer OTHER ==
[~2018-01-26] VITALS: Ht 170.2 cm; Wt 135.2 kg
[2018-01-26 13:59] VITALS: BP 150/100
[2018-01-26] MEDS ORDERED: predniSONE 20 MG TAB PO ONE (14:10)
[2018-01-26] MEDS ORDERED: ALBUTEROL 0.083% 2.5 MG/3 ML NEBU INH ONE (14:10)
[2018-01-26] MEDS ORDERED: ALBUTEROL SULFATE/IPRATROPIU 3 ML SOL IH ONE (14:10)
--- NOTE | 2018-01-26 14:11 | NUR ---
63 Y/O M BIBA W/C/O SOB X TODAY. PT WAS D/C FROM HERE 01/22. PT STATED HE WAS TOLD NOT TO USE RESCUE INHALER BY NURSE FROM [facility] AND TRIED TO WALK HERE AND BECAME SOB. 95% ON 2L O2. NO ACCESSORY MUSCLE USE NOTED. NO TRIPODING. PT DENIES N/V/D; AAOX4, PERRL; BREATHING LABORED; HR EVEN AND REGULAR, BL PERIPHERAL PULSES PRESENT; PT STATES 0/10 PAIN AT THIS TIME; VSS; PATIENT POSITIONED FOR COMFORT; HOB ELEVATED; BEDRAILS UP X2; BED DOWN. PMH: EXTENSIVE AND IN OUR CHARTS MONIKAA
--- NOTE | 2018-01-26 14:20 | NUR ---
RT AT BEDSIDE.
--- NOTE | 2018-01-26 14:22 | NUR ---
ADMITTING DX: SOB HX: ASTHMA COPD CHF PATIENT AWAKE AND ALERT RESPONSIVE TO POLE TESTER VERBAL COMMANDS GOOD HISTORIAN HFW POSITION SKIN TONE PINK EDUCATION PROVIDED TO PATIENT WITH ACKNOWLEDGEMENT ON HHN THERAPY AND RESPIRATORY DRUGS HHN THERAY GIVEN ORDERED ENCOURAGED PATIENT FOR INTERMITTENT DEEP BREATHING DURING THERAPY TOLERATED WELL WTIHOUT INCIDENT
[2018-01-26 15:16] VITALS: BP 115/81
--- NOTE | 2018-01-26 15:16 | NUR ---
Patient discharged with v/s stable. Written and verbal after care instructions given and explained. Patient alert, oriented and verbalized understanding of instructions. Ambulatory with steady gait. All questions addressed prior to discharge. ID band removed. Patient advised to follow up with PMD. Rx of ALBUTEROL & PREDNISONE given. Patient educated on indication of medication including possible reaction and side effects. Opportunity to ask questions provided and answered.
== END 2018-01-26 15:16 | disposition home or self-care (01) ==
LOC: MED 13:59
DX: J44.9 Chronic obstructive pulmonary disease, unspecified (principal); I10 Essential (primary) hypertension; Z86.73 Personal history of transient ischemic attack (TIA), and cerebral infarction without residual deficits; Z79.899 Other long term (current) drug therapy
CPT/HCPCS: 81002; 94640; 99283; J7512; J7613; J7620

== ENCOUNTER 2018-03-26 22:30 | Inpatient (IN) | payer OTHER ==
[~2018-03-26] VITALS: Ht 170.2 cm; Wt 131.1 kg
[2018-03-26 22:37] VITALS: BP 114/93
--- NOTE | 2018-03-26 22:37 | NUR ---
PT PRESENTS TO ED WITH SOB, DYSPNEA, N/V X3 HRS. BILAT LOWER LOBES EXPIRATORY WHEEZING. NON-PRODUCSTIVE COUGH. SKIN MOTTLED. O2SAT 84% @ RA. POSITIONED IN BED WITH HOB ELEVATED. HR 130. HX: PACEMAKER, CARDIAC DISEASE, HTN. DR GRACE AT BEDSIDE EVALUATING. CONTINUE TO MONITOR.
--- NOTE | 2018-03-26 22:37 | NUR ---
BIB WHEELCHAIR TO ER BED 4
[2018-03-26] MEDS ORDERED: ONDANSETRON 4 MG/2 ML VIAL IVP ONE (22:40)
[2018-03-26] MEDS ORDERED: NACL 0.9% 1,000 ML IV ONE ×3 (22:40→23:55)
[2018-03-26] MEDS ORDERED: predniSONE 20 MG TAB PO ONE (23:20)
[2018-03-26] MEDS ORDERED: ALBUTEROL SULFATE/IPRATROPIU 3 ML SOL IH ONE (23:20)
[2018-03-26] MEDS ORDERED: ALBUTEROL 0.083% 2.5 MG/3 ML NEBU INH ONE (23:20)
[2018-03-26] MEDS ORDERED: cefTRIAXone 1,000 MG in DEXT 5% MINI-BAG PLUS 50 ML IV ONE (23:20)
[2018-03-26 23:28] LABS: BASOPHILS # (AUTO) 0.1 K/uL (0.00-0.22); BASOPHILS % (AUTO) 0.5 % (0.0-2.0); EOSINOPHILS # (AUTO) 0.2 K/uL (0-0.4); EOSINOPHILS % (AUTO) 1.3 % (0.0-4.0); HEMATOCRIT 55.4 % (36-52); HEMOGLOBIN 18.1 g/dL (12.0-18.0); LYMPHOCYTES # (AUTO) 2.1 K/uL (2.0-11.5); LYMPHOCYTES % (AUTO) 11.7 % (20.5-51.1); MEAN CORPUSCULAR HEMOGLOBIN 32 pg (27-31); MEAN CORPUSCULAR HGB CONC 33 g/dL (33-37); MEAN CORPUSCULAR VOLUME 98.2 fL (80-94); MONOCYTES # (AUTO) 1.3 K/uL (0.8-1.0); MONOCYTES % (AUTO) 7.6 % (1.7-9.3); NEUTROPHILS # (AUTO) 14.1 K/uL (1.8-7.7); NEUTROPHILS % (AUTO) 78.9 % (42.2-75.2); PLATELET COUNT (AUTO) 212 K/uL (140-450); RED BLOOD CELL COUNT(AUTO) 5.64 MIL/uL (4.20-6.10); RED CELL DISTRIBUTION WIDTH 14.8 % (11.6-13.7)
[2018-03-26] MEDS ORDERED: cefTRIAXone 1,000 MG VIAL ONE (23:35)
[2018-03-26 23:39] LABS: ANION GAP 10.6 (8-16); CARBON DIOXIDE 30.7 mmol/L (21-32); CREATININE 1.6 mg/dL (0.7-1.3); POTASSIUM 4.3 mmol/L (3.5-5.1)
[2018-03-26 23:40] LABS: WHITE BLOOD COUNT (AUTO) 17.8 K/uL (4.8-10.8)
[2018-03-26 23:45] LABS: ALBUMIN 3.3 g/dL (3.4-5.0); TOTAL BILIRUBIN 0.3 mg/dL (0.0-1.0)
[2018-03-27 00:46] LABS: APPEARANCE,URINE CLEAR (CLEAR); BILIRUBIN,URINE NEGATIVE (NEGATIVE); BLOOD, URINE TRACE-I (NEGATIVE); COLOR,URINE YELLOW (YELLOW); LEUKOCYTE ESTERASE ,URINE NEGATIVE (NEGATIVE); NITRITE, URINE NEGATIVE (NEGATIVE); UGLUCOSE TRACE (NEGATIVE)
[2018-03-27 00:47] LABS: RBC,URINE 0-5 (RARE) /HPF (0-5); WBC,URINE 0-5 (RARE) /HPF (0-5)
[2018-03-27] MEDS ORDERED: HYDROcodone/APAP 5/325 MG 1 TAB TAB PO PRN (00:50)
[2018-03-27] MEDS ORDERED: LORazepam 2 MG/ML VIAL IVP PRN (00:50)
[2018-03-27] MEDS ORDERED: MORPHINE SULFATE 2 MG/ML SYR IVP PRN (00:50)
[2018-03-27] MEDS ORDERED: ACETAMINOPHEN 325 MG TAB PO PRN (00:50)
[2018-03-27] MEDS ORDERED: NITROGLYCERIN 0.4 MG TAB SL PRN (00:50)
[2018-03-27] MEDS ORDERED: ONDANSETRON 4 MG/2 ML VIAL IVP PRN (00:50)
--- NOTE | 2018-03-27 01:50 | NUR ---
RECEIVED PT FROM ER, [employer]IA [employer]. PT A,OX4, AMMBULATORY, SEVERE TREMORS ON HIS HANDS NOTED SECONDARY TO PARKINSON;S DSE. ON TELE MONITORING. CC: SOB. DX: CLAUDIA. PT PLACED IN LOW BED POSITION. ORIENTED TO UNIT.
[2018-03-27] MEDS ORDERED: AZITHROMYCIN 500 MG in DEXTROSE 5% 250 ML IV SCH (02:00)
[2018-03-27] MEDS ORDERED: AZITHROMYCIN 500 MG INJ VIAL IV ONE (02:56)
--- NOTE | 2018-03-27 04:00 | NUR ---
WENT TO THE BATHROOM W/ STANDBY ASSIST, ABLE TO AMBULATE. URINE X 2X NOTED THIS SHIFT
--- NOTE | 2018-03-27 04:00 | NUR ---
STILL GIVING THE BOLUS FROM THE ER THE ORDER WAS 3 BAGS OF 1000 ML NS. STILL TO ASK DR. MARIANO FOR AN IVF ORDER AT THE UNIT. WILL ENDORSE
--- NOTE | 2018-03-27 05:00 | NUR ---
PT REQUESTED FOR JUICE AND CRACKERS, ABLE TO TOLERATE FOOD WELL.NO SOB . NO COMPLAINTS OF PAIN NOTED. WILL CONTINUE TO MONITOR
--- NOTE | 2018-03-27 07:10 | NUR ---
ENDORSED TO NEXT SHIFT FOR CONTINUITY OF CARE. PT IN STABLE CONDITION
--- NOTE | 2018-03-27 07:11 | NUR ---
RECEIVED BEDSIDE REPORT FROM TREE TRIMMER HELPER NURSE. PATIENT IS AWAKE, ALERT AND ORIENTEDX4. NO SIGNS OF DISTRESS ON 2L NC. PATIENT HAS PARKINSONS, FALL RISK PROTOCOL IN PLACE. PATIENT AMBULATES W ASSISTANCE. SKIN IS INTACT. IV ON L HAND 20G INFUSING NS BOLUS AT 400. CLEAN, DRY AND INTACT. PATIENT IS CONTINENT. BED IN LOW POSITION. CALL LIGHT WITHIN REACH. WILL CONTINUE TO MONITOR THE PATIENT
[2018-03-27] MEDS: ALBUTEROL 0.083% 2.5 MG/3 ML NEBU INH PRN (07:21)
[2018-03-27] MEDS: BUDESONIDE 0.25 MG/2 ML NEBU INH SCH ×2 (07:28→18:31)
[2018-03-27 08:00] VITALS: BP 127/73
--- NOTE | 2018-03-27 08:21 | NUR ---
PATIENT HAS BEEN SCREENED AND CATEGORIZED HIGH NUTRITION RISK. PATIENT WILL BE SEEN WITHIN 1-2 DAYS OF ADMISSION. 03/27/18-03/28/[address]
[2018-03-27 08:53] LABS: CREATINE KINASE MB 1.5 ng/mL (0-3.6)
[2018-03-27] MEDS ORDERED: NON-FORMULARY ITEM (Trazodone HCl 100 MG) PO SCH (09:00)
[2018-03-27] MEDS ORDERED: NON-FORMULARY ITEM (Spironolactone 1 TAB) PO SCH (09:00)
[2018-03-27] MEDS ORDERED: METOPROLOL SUCCINATE 200 MG PO SCH (09:00)
[2018-03-27] MEDS ORDERED: METOPROLOL 50 MG TAB PO SCH ×2 (09:00→23:30)
[2018-03-27] MEDS ORDERED: NON-FORMULARY ITEM (Apixaban (Eliquis) 5 MG) PO SCH (09:00)
[2018-03-27] MEDS ORDERED: NON-FORMULARY ITEM (Amiodarone HCl (Amiodarone Hcl) 200 MG) PO SCH (09:00)
[2018-03-27] MEDS: DILTIAZEM 120 MG CAPER PO SCH (09:59)
[2018-03-27] MEDS: DIVALPROEX 500 MG TABEC PO SCH ×2 (10:00→20:16)
[2018-03-27] MEDS: APIXABAN 2.5 MG TAB PO SCH ×2 (10:01→20:13)
[2018-03-27] MEDS: ARIPiprazole 10 MG TAB PO SCH (10:02)
[2018-03-27] MEDS: SPIRONOLACTONE 25 MG TAB PO SCH (10:02)
[2018-03-27] MEDS: CARBIDOPA/LEVODOPA 25/100 MG 1 TAB PO SCH ×3 (10:02→17:01)
[2018-03-27] MEDS: BENAZEPRIL 20 MG TAB PO SCH (10:03)
[2018-03-27] MEDS: FUROSEMIDE 20 MG TAB PO SCH (10:03)
[2018-03-27] MEDS: FLUoxetine 10 MG CAP PO SCH (10:03)
[2018-03-27] MEDS: AMIODARONE 200 MG TAB PO SCH (10:04)
[2018-03-27] MEDS: traZODone 50 MG TAB PO SCH (10:04)
--- NOTE | 2018-03-27 10:06 | NUR ---
ADMINISTERED MEDS. PATIENT TOLERATED WELL. WILL CONTINUE TO MONITOR THE PATIENT.
--- NOTE | 2018-03-27 10:32 | NUR ---
Faxed H&P and face sheet to Dr. Brody's office . Spoke with Florencia and she will call me back for the follow up appt for next week. She needs to confirm with Dr. Brody.
[2018-03-27 12:00] VITALS: BP 120/75
--- NOTE | 2018-03-27 12:00 | NUR ---
VITALS WNL. PATIENT AMBULATED TO THE RESTROOM NO OXYGEN PLACED BACK ON WHEN PATIENT WENT BACK TO BED. O2SATS IN THE HIGH 80S, ADMINISTERED OXYGEN 2L NC, O2SAT NOW 92. NO SIGNS OF DISTRESS. BED IN LOW POSITION. WILL CONTINUE TO MONITOR THE PATIENT.
--- NOTE | 2018-03-27 13:31 | NUR ---
03/27/18 RD INITIAL ASSESSMENT COMPLETED PLEASE REFER TO NUTRITION ASSESSMENT UNDER CARE ACTIVITY FOR ESTIMATED NUTRITIONAL NEEDS. 1. CONTINUE CARDIAC DIET TOLERATED 2. RD TO FOLLOW UP ON ADEQUATE PO INTAKE 3. RD TO FOLLOW-UP 5-7 DAYS, LOW RISK ERD FRASER, RD
--- NOTE | 2018-03-27 14:12 | NUR ---
ADMINISTERED MEDS. PATIENT TOLERATED WELL. WILL CONTINUE TO MONITOR THE PATIENT
--- NOTE | 2018-03-27 15:18 | NUR ---
PATIENT IS SLEEPING. NO SIGNS OF DISTRESS. WILL CONTINUE TO MONITOR THE PATIENT
[2018-03-27 16:00] VITALS: BP 100/62
--- NOTE | 2018-03-27 17:02 | NUR ---
ADMINISTERED MEDS. PATIENT TOLERATED WELL. NO SIGNS OF DISTRESS. BED IN LOW POSITION. CALL LIGHT WITHIN REACH, WILL CONTINUE TO MONITOR
--- NOTE | 2018-03-27 18:32 | NUR ---
PATIENT ASKING FOR A BREATHING TX TOLD RT.
--- NOTE | 2018-03-27 19:10 | NUR ---
GAVE BEDSIDE REPORT TO NUCLEAR POWER PLANT ENGINEER NURSE. PATIENT ENDORSED IN STABLE CONDITION
--- NOTE | 2018-03-27 19:13 | NUR ---
RECEIVED BEDSIDE REPORT FROM AM NURSE. PATIENT IS AWAKE, ALERT AND ORIENTEDX4, AMBULATORY WITH STANDBY ASSIST. NO SIGNS OF DISTRESS ON 2L NC. PATIENT HAS PARKINSON'S WITH TREMORS ON THE B UE. FALL RISK PROTOCOL IN PLACE. PATIENT AMBULATES W ASSISTANCE. SKIN IS INTACT. IV ON L HAND 20G . WILL ASK FOR ORDER LATER ON KVO FOR ANTIBIOTIC ADMINISTRATION. PATIENT IS CONTINENT. BED IN LOW POSITION. CALL LIGHT WITHIN REACH. WILL CONTINUE TO MONITOR THE PATIENT
[2018-03-27 20:00] VITALS: BP 142/98
[2018-03-27] MEDS: ATORVASTATIN 20 MG TAB PO SCH (20:15)
[2018-03-27] MEDS: AZITHROMYCIN 500 MG in DEXTROSE 5% 250 ML IV SCH (20:17)
--- NOTE | 2018-03-27 21:00 | NUR ---
LOPRESSOR MEDS 400 MG. PER PATIENT THAT HE HAD LOW BPO AT 99/56. WILL INFORM DR. DUMAS FOR A POSSIBLE CHANGE OF DOSAGE. NO LOPRESSOR GIVEN TONIGHT Addendum: 03/27/18 at 2257 by Libby Clinton RN 200 MG NOT 400 MG Addendum: 03/27/18 at 2312 by Libby Clinton RN 200 MG NOT 400 MG. AMEND " NO LOPRESSOR GIVEN TONIGHT: WILL MISS LOPRESSOR 200 MG DOSAGE, AND WILL ASK FOR A CHANGE OF ORDER.
--- NOTE | 2018-03-27 21:00 | NUR ---
PT'S BP WAS WNL AT 108/62MMHG, PT FEELING WELL, NO DISTRESS AT THIS TIME. WILL CONTINUE TO MONITOR. LOPRESSOR MED DOSAGE NEED TO VERIFIED TO THE BEFORE ADMINISTRATION. WILL CALL
--- NOTE | 2018-03-27 22:15 | NUR ---
TALKED TO DR. DUMAS POTASH FLAKER FOR NATURITA. PER PT HIS BP WAS DECREASED EARLIER LOW 99/56. PT'S BP MEDS 200 MG DISCONTINUED. CHANGED ORDER TO LOPRESSOR (METOPROLOL) [address] DUMAS SAID TO ORDER VIA TORB. ALSO, ORDERED NS 500ML AT KVO SALINE LOCK.
[2018-03-27] MEDS ORDERED: NACL 0.9% 500 ML IV PRN (22:35)
--- NOTE | 2018-03-27 23:16 | NUR ---
PLACED THE ORDER FOR DR. DUMAS FOR DR. HECK VIA TORB TO GIVE LOPRESSOR 100 MG ONCE TONIGHT AND FOR A CHANGE IN ORDER LOPRESSOR 100 MG PO BID (STARTING TOMORROW 03/28/18). DR. DUMAS WAS INFORMED.
[2018-03-27] MEDS: NACL 0.9% 500 ML IV SCH (23:19)
[2018-03-28] VITALS: BP 130/95
--- NOTE | 2018-03-28 | NUR ---
PT SLEEPING IN BED, NO COMPLAINTS AT THIS TIME, NO SOB, NO DISTRESS NOTED.WILL CONTINUE TO MONITOR
[2018-03-28 04:00] VITALS: BP 101/63
[2018-03-28] MEDS: ALBUTEROL 0.083% 2.5 MG/3 ML NEBU INH PRN ×3 (04:39→18:59)
[2018-03-28 06:40] LABS: BASOPHILS % (AUTO) 0.2 % (0.0-2.0); EOSINOPHILS # (AUTO) 0.2 K/uL (0-0.4); EOSINOPHILS % (AUTO) 1.3 % (0.0-4.0); HEMATOCRIT 48.5 % (36-52); HEMOGLOBIN 15.7 g/dL (12.0-18.0); LYMPHOCYTES # (AUTO) 1.9 K/uL (2.0-11.5); LYMPHOCYTES % (AUTO) 10.8 % (20.5-51.1); MEAN CORPUSCULAR HEMOGLOBIN 32 pg (27-31); MEAN CORPUSCULAR HGB CONC 32 g/dL (33-37); MEAN CORPUSCULAR VOLUME 99.7 fL (80-94); MONOCYTES # (AUTO) 1.1 K/uL (0.8-1.0); MONOCYTES % (AUTO) 6.1 % (1.7-9.3); NEUTROPHILS # (AUTO) 14.4 K/uL (1.8-7.7); NEUTROPHILS % (AUTO) 81.6 % (42.2-75.2); PLATELET COUNT (AUTO) 168 K/uL (140-450); RED BLOOD CELL COUNT(AUTO) 4.87 MIL/uL (4.20-6.10); RED CELL DISTRIBUTION WIDTH 15.3 % (11.6-13.7); WHITE BLOOD COUNT (AUTO) 17.7 K/uL (4.8-10.8)
[2018-03-28 06:43] LABS: CREATINE KINASE MB 1.4 ng/mL (0-3.6)
[2018-03-28 06:48] LABS: ALBUMIN 2.6 g/dL (3.4-5.0); ANION GAP 10.2 (8-16); CARBON DIOXIDE 29.4 mmol/L (21-32); CREATININE 1.5 mg/dL (0.7-1.3); POTASSIUM 4.6 mmol/L (3.5-5.1); TOTAL BILIRUBIN 0.7 mg/dL (0.0-1.0)
--- NOTE | 2018-03-28 06:55 | NUR ---
WILL ENDORSE TO NEXT SHIFT FOR CONTINUITY OF CARE. PT IN STABLE CONDITION
--- NOTE | 2018-03-28 07:30 | NUR ---
RECEIVED PT FROM PROFESSOR OF BIOCHEMISTRY NURSEMARLON, PT IS AWAKE AND L,ALIZA ON THE BED WITH O2 AT 2L NC IN PLACE, SIDE RAILS ARE UP AND CALL LIGHT WITHIN REACH, FALL AND SAFETY PRECAUTION ENFORCED, BED INN LOW POSITION, PT HAS AN IV LINE ON THE LEFT HAND G. 20 WITH NS AT 10ML/HR INFUSING. PT DENIES SOB AND PAIN, NO SIGN OF DISTRESS NOTED AND WILL CONTINUE TO MONITOR PT.
--- NOTE | 2018-03-28 07:50 | NUR ---
PT IS AWAKE AND VITAL SIGNS TAKEN AND IS WITHIN NORMAL LIMIT, NO SIGN OF DISTRESS NOTED AND WILL MONITOR PT.
--- NOTE | 2018-03-28 07:56 | NUR ---
AWAKE AND ALERT NO SOB NOTED VERBALLY RESPONSIVE PATIENT WITH BREAKFAST TRAY RODDING MACHINE TENDER TO ATTEMPT HHN THERAPY AT A LATER TIME
[2018-03-28 08:00] VITALS: BP 113/79
[2018-03-28] MEDS: BUDESONIDE 0.25 MG/2 ML NEBU INH SCH ×2 (08:20→18:59)
--- NOTE | 2018-03-28 09:15 | NUR ---
PT IS AWAKE AND WAS SEEN BY DR. HECK AND ASSESSED, ORDERED A CONSULTATION FOR PT TO DR. ALBERTS AND MADE A REQUEST TO [employer]EV[employer] SUPERVIS[employer] FOR HOME HEALTH FOR THE PT.
--- NOTE | 2018-03-28 09:23 | NUR ---
Follow up appt to see Dr. Brody on 04/03/18 at 1030. Clinic number [facility] [facility]. [id number]. Appt schedule given to pt with verbal understanding.
[2018-03-28] MEDS: CARBIDOPA/LEVODOPA 25/100 MG 1 TAB PO SCH ×3 (09:41→16:16)
[2018-03-28] MEDS: FLUoxetine 10 MG CAP PO SCH (09:41)
[2018-03-28] MEDS: BENAZEPRIL 20 MG TAB PO SCH (09:41)
[2018-03-28] MEDS: ARIPiprazole 10 MG TAB PO SCH (09:42)
[2018-03-28] MEDS: DIVALPROEX 500 MG TABEC PO SCH ×2 (09:42→21:07)
[2018-03-28] MEDS: AMIODARONE 200 MG TAB PO SCH (09:42)
[2018-03-28] MEDS: SPIRONOLACTONE 25 MG TAB PO SCH (09:43)
[2018-03-28] MEDS: METOPROLOL 50 MG TAB PO SCH ×2 (09:44→21:07)
[2018-03-28] MEDS: traZODone 50 MG TAB PO SCH (09:44)
[2018-03-28] MEDS: FUROSEMIDE 20 MG TAB PO SCH (09:44)
[2018-03-28] MEDS: APIXABAN 2.5 MG TAB PO SCH ×2 (09:46→21:06)
[2018-03-28] MEDS: DILTIAZEM 120 MG CAPER PO SCH (09:48)
--- NOTE | 2018-03-28 09:53 | NUR ---
PT IS AWAKE AND VITAL SIGN TAKEN PRIOR TO MEDICATION ADMINISTRATION AND IS WITHIN NORMAL LIMIT. PT DENIES PAIN AND NO SOB NOTED, O2 SATURATION IS 96%. NO SIGN OF DISTRESS NOTED AND WILL MONITOR PT.
--- NOTE | 2018-03-28 09:57 | NUR ---
Jennifer Pelayo RN for pt's follow up appt already done.
--- NOTE | 2018-03-28 10:00 | NUR ---
CM CAME TO PT'S ROOM AND SPOKE TO PT REGARDING THE APPOINTMENT THAT WAS SET UP,PT VERBALIZED UNDERSTANDING. APPOINTMENT PAPER WAS HANDED TO PT AND WAS PLACED IN PT'S BELONGINGS
--- NOTE | 2018-03-28 10:49 | NUR ---
NARAYAN NOTE FAXED ORDER FOR HOME HEALTH TO [facility]. PER [facility] FERRERA # [phone] SHE WILL SET UP PATIENT'S HOME HEALTH.
--- NOTE | 2018-03-28 11:00 | NUR ---
PT WAS OFF THE UNIT FOR A CT SCAN OF HEAD WITHOUT CONTRAST, PT IS STABLE AT THIS TIME.
--- NOTE | 2018-03-28 11:12 | NUR ---
ROOM AIR TRIAL OFF SUPPLEMENTAL OXYGEN AT THIS TIME
--- NOTE | 2018-03-28 11:20 | NUR ---
PT IS BACK TO ROOM FROM CT SCAN OF HEAD WITHOUT CONTRAST, PT IS STABLE AT THIS TIME, NO SOB NOTED.
--- NOTE | 2018-03-28 11:45 | NUR ---
TOLERATED ROOM AIR TRIAL WELL WITHOUT INCIDENT X 45 MINS SATURATION 87% PIPE/RN NOTIFIED PLACED PATIENT BACK ON SUPPLEMENTAL OXYGEN AT 2 LPM VIA NC
[2018-03-28 12:00] VITALS: BP 110/69
--- NOTE | 2018-03-28 12:40 | NUR ---
PT WAS ASSISTED TO URINATE IN THE URINAL AND ASSISTED BACK TO THE BED.
--- NOTE | 2018-03-28 13:03 | NUR ---
PT IS AWAKE AND SEATED ON THE CHAIR JUST FINISHED WITH HIS LUNCH, ORAL MEDIVCATION GIVEN AND PT TOLERATED IT. NO SIGN OF DISTRESS NOTED AND WILL MONITOR PT.
[2018-03-28 16:00] VITALS: BP 112/52
--- NOTE | 2018-03-28 16:17 | NUR ---
OPT IS AWAKE AND SEATED ON THE CHAIR, VITAL SIGNS TAKEN AND IS WITHIN NORMAL LIMIT, NO SIGN OF DISTRESS NOTED, PT'S O2 SATURATION IS 91% ON ROOM AIR. WILL MONITOR PT.
--- NOTE | 2018-03-28 17:45 | NUR ---
PT'S DINNER TRAY WAS SERVED AND PT WAS ASSISTED TO EAT. PT WAS REMINDED TO CHEW FOOD WELL BEFORE SWALLOWING AND PT VERBALIZED UNDERSTANDING.
--- NOTE | 2018-03-28 19:20 | NUR ---
ENDORSED PT TO SEASONAL TAX PREPARER NURSE, KELSEY MAZARIEGOS, FOR CONTINUITY OF CARE, PT ISTABLE AT THIS TIME AND IS HAVING A BREATHING TREATMENT.
--- NOTE | 2018-03-28 19:25 | NUR ---
RECEIVED ENDORSEMENT FROM AM RN. PT IS AWAKE, ABLE TO MAKE NEEDS KNOWN. WITH O2 AT 2L NC IN PLACE. NO SOB OR DISTRESS NOTED. PT HAS AN IV LINE ON THE LEFT HAND, 20 GAUGE WITH NS RUNNING AT 10ML/HR. BED IN THE LOWEST POSITION, CALL LIGHT WITHIN REACH, FALL AND SAFETY PRECAUTION ENFORCED, WILL CONTINUE TO MONITOR PT.
[2018-03-28 20:00] VITALS: BP 115/70
--- NOTE | 2018-03-28 21:02 | NUR ---
PATIENT ASLEEP, VISIBLE CHEST RISE AND FALL NOTED.
[2018-03-28] MEDS: ATORVASTATIN 20 MG TAB PO SCH (21:08)
[2018-03-28] MEDS: AZITHROMYCIN 500 MG in DEXTROSE 5% 250 ML IV SCH (21:13)
[2018-03-28] MEDS: NACL 0.9% 500 ML IV SCH (22:35)
--- NOTE | 2018-03-28 23:59 | NUR ---
FREQUENT CHECKS MADE, VITALS TAKEN. NO SOB OR DISTRESS NOTED.
[2018-03-29] VITALS: BP 92/63
--- NOTE | 2018-03-29 01:58 | NUR ---
VITALS TAKEN, NO SOB OR DISTRESS NOTED.
[2018-03-29 04:00] VITALS: BP 106/74
--- NOTE | 2018-03-29 04:06 | NUR ---
VITALS DONE. PATIENT ASLEEP, EYES CLOSED, VISIBLE CHEST RISE AND FALL NOTED.
[2018-03-29 06:47] LABS: BASOPHILS % (AUTO) 0.3 % (0.0-2.0); EOSINOPHILS # (AUTO) 0.5 K/uL (0-0.4); EOSINOPHILS % (AUTO) 3.7 % (0.0-4.0); HEMATOCRIT 47.3 % (36-52); HEMOGLOBIN 15.3 g/dL (12.0-18.0); LYMPHOCYTES # (AUTO) 1.9 K/uL (2.0-11.5); LYMPHOCYTES % (AUTO) 13.4 % (20.5-51.1); MEAN CORPUSCULAR HEMOGLOBIN 32 pg (27-31); MEAN CORPUSCULAR HGB CONC 32 g/dL (33-37); MEAN CORPUSCULAR VOLUME 99.5 fL (80-94); MONOCYTES # (AUTO) 1.2 K/uL (0.8-1.0); MONOCYTES % (AUTO) 8.3 % (1.7-9.3); NEUTROPHILS # (AUTO) 10.4 K/uL (1.8-7.7); NEUTROPHILS % (AUTO) 74.3 % (42.2-75.2); PLATELET COUNT (AUTO) 164 K/uL (140-450); RED BLOOD CELL COUNT(AUTO) 4.75 MIL/uL (4.20-6.10); RED CELL DISTRIBUTION WIDTH 15.4 % (11.6-13.7)
[2018-03-29 07:07] LABS: ALBUMIN 2.5 g/dL (3.4-5.0); ANION GAP 4.8 (8-16); CARBON DIOXIDE 35.7 mmol/L (21-32); CREATININE 1.6 mg/dL (0.7-1.3); POTASSIUM 4.5 mmol/L (3.5-5.1); TOTAL BILIRUBIN 0.5 mg/dL (0.0-1.0)
--- NOTE | 2018-03-29 07:10 | NUR ---
ENDORSED PATIENT TO AM SHIFT RN. PATIENT IN STABLE CONDITION.
--- NOTE | 2018-03-29 07:11 | NUR ---
RECEIVED REPORT FROM PM NURSE AT [facility]. PT Trinh;ALIZA ON HIS BED COMFORTABLY. INTRODUCED SELF AND UPDATED BOARD. PT HAS IV ON LFT HAND 20 G, IVF INFUSING AT 10ML/HR. SIN INTACT. CARDIAC DIET. HAS BEDSIDE URINAL, IS ON FALL RISK. BED AT LOWER POSITION. PLACED CALL LIGHT WITHIN PT REACH. INFORMED TO USE CALL LIGHT FOR ANY HELP. PT IS ON 2LPM O2 VIA NC . PT O2 SAT 94%. ALL SAFETY MEASURE IN PLACE. WILL CONTINUE TO MONITOR PT.
[2018-03-29 07:41] VITALS: BP 97/66
--- NOTE | 2018-03-29 07:47 | NUR ---
PT EATING AT THIS TIME PT STATES HE WANTS TO EAT AND TO COME BACK AT A LATER TIME FOR BREATHING TX ADMINISTRATION. PT NOT SOB AT THIS TIME.
[2018-03-29] MEDS: BUDESONIDE 0.25 MG/2 ML NEBU INH SCH (08:21)
[2018-03-29] MEDS: BENAZEPRIL 20 MG TAB PO SCH (08:34)
[2018-03-29] MEDS: FLUoxetine 10 MG CAP PO SCH (08:34)
[2018-03-29] MEDS: METOPROLOL 50 MG TAB PO SCH (08:35)
[2018-03-29] MEDS: traZODone 50 MG TAB PO SCH (08:35)
[2018-03-29] MEDS: ARIPiprazole 10 MG TAB PO SCH (08:35)
[2018-03-29] MEDS: DIVALPROEX 500 MG TABEC PO SCH (08:36)
[2018-03-29] MEDS: FUROSEMIDE 20 MG TAB PO SCH (08:36)
[2018-03-29] MEDS: DILTIAZEM 120 MG CAPER PO SCH (08:36)
[2018-03-29] MEDS: SPIRONOLACTONE 25 MG TAB PO SCH (08:37)
[2018-03-29] MEDS: AMIODARONE 200 MG TAB PO SCH (08:37)
[2018-03-29] MEDS: CARBIDOPA/LEVODOPA 25/100 MG 1 TAB PO SCH ×2 (08:37→13:48)
--- NOTE | 2018-03-29 08:45 | NUR ---
ADMINISTERED MEDS TO PT ORDERED. TOLERATED WELL. CALL LIGHT WITHIN PT REACH. PT IS ON ROOM AIR, RT AT BEDSIDE TO MONITOR O2 SATURATION AT ROOM AIR . PT O2 SAT 91% ON RA. NO SIGN OF DISTRESS NOTED. ALL SAFETY MEASURE IN PLACE. INFORMED TO USE CALL LIGHT FOR ANY HELP. WILL CONTINUE TO MONITOR PT.
[2018-03-29] MEDS: APIXABAN 2.5 MG TAB PO SCH (08:46)
--- NOTE | 2018-03-29 10:30 | NUR ---
ASSISTED PT TO RESTROOM. PT WANTS TO SIT ON CHAIR AND WATCH TV. INFORMED HIM TO USE CALL LIGHT FOR ANY ASSISTANCE. VERBALIZED UNDERSTANDING. NO SIGN OF DISTRESS NOTED. WILL CONTINUE TO MONITOR PT.
--- NOTE | 2018-03-29 10:53 | NUR ---
NARAYAN JOHNSON RECEIVED ORDER FOR HOME O2 AND FOR HIGH RISK OUTPATIENT FOLLOW UP AT [facility] WITHIN 1 WEEK. ORDER FOR HOME O2 AND FOR HIGH RISK OUTPATIENT FOLLOW UP WERE FAXED TO [facility]. PER [facility] FERRERA, THE HOME HEALTH HAS BEEN ARRANGED AND THE OXYGEN WILL BE DELIVERED BEDSIDE AT THE HOSPITAL TODAY. PER NARAYAN FERRERA, SHE WILL SEND THE AUTHORIZATION FOR HIGH RISK FOLLOW UP TO [facility]. PER ISHAN OF [facility] PH# [phone], THE PATIENT IS SCHEDULED TO SEE DR. HECK ON APRIL 03, 2018, 3:30PM, AT THE [facility] AT [address] [facility] [address] [facility] [address] PH# [phone]. I GAVE THE PATIENT A COPY OF HIS HIGH RISK OUTPATIENT FOLLOW UP SCHEDULE. CHARGE NURSE JOHAN TRAN AWARE. Addendum: 03/29/18 at 1111 by Monet Guzman CM ISHAN OF [facility] REQUESTED FOR H&P, LAB RESULTS AND LIST OF MEDICATIONS BE FAXED TO HER AT THE [facility] FAX# [phone]. FAXED TO [facility].
[2018-03-29] MEDS ORDERED: DOXY100C9 PO (11:46)
[2018-03-29] MEDS ORDERED: OSEL30CA1 PO (11:46)
[2018-03-29] MEDS ORDERED: METH4TAB3 PO (11:48)
[2018-03-29 12:00] VITALS: BP 101/62
--- NOTE | 2018-03-29 12:00 | NUR ---
CHECKED ON PT. SITTING ON HIS CHAIR. ASSISTED PT BACK BED. WAS SLEEPY. INFORMED HIM THAT WILL BE DISCHARGE ONCE THE O2 IS DELIVERED AT BEDSIDE. PT VERBALIZED UNDERSTANDING. NO SIGN OF DISTRESS NOTED. PT PUT BACK ON O2. PLACED CALL LIGHT WITHIN PT REACH. WILL CONTINUE TO MONITOR PT.
--- NOTE | 2018-03-29 12:17 | NUR ---
ROMA CALLED FROM [facility], SHE STATED THAT OXYGEN WILL BE DELIVERED AT PT'S BEDSIDE IN 2 HRS. ALDO-MARC NOTIFIED.
--- NOTE | 2018-03-29 16:00 | NUR ---
PTS OXYGEN DELIVERED AT THE BEDSIDE. PT AWARE. ASKING FOR TIME TO GET DISCHARGED. INFORMED WILL CORK ON HIS DC PAPER. VERBALIZED UNDERSTANDING.
--- NOTE | 2018-03-29 17:00 | NUR ---
PT DISCHARGED TO HOME WITH HOME HEALTH SERVICE AND SAFETY MEASURE IN PLACE. [facility]. PT AWARE OF THE HOME HEALTH AGENCY BEING INVOLVED IN THE CARE . PT EDUCATED ON SAFETY MEASURE TO BE TAKEN WHILE USING O2 AND INFORMED HIM TO CALL PHONE NUMBER ON THE O2 TANK. PT STATES HAS NUMBER TO CALL. PT FRIEND TOOK THE PT TO HIS HOME. ALL DISCHARGE INSTRUCTION AND THE PAPER PROVIDED TO PT. PT WAS ON CONTINUOUS O2 AT 2LPM AT THE TIME OF DISCHARGE. PT WHEELED OUT TO THE LOBBY.
[2018-03-29] MEDS ORDERED: OSELTAMIVIR PHOSPHATE 75 MG CAP PO SCH (21:00)
== END 2018-03-29 17:00 | disposition home health service (06) | DRG 871 ==
LOC: MED 22:30 → MTU 03-27 00:50
PROVIDERS: ADMIT Hospitalist; ATTEND Hospitalist
DX: A41.50 Gram-negative sepsis, unspecified (principal); J96.01 Acute respiratory failure with hypoxia; J11.00 Influenza due to unidentified influenza virus with unspecified type of pneumonia; J44.0 Chronic obstructive pulmonary disease with (acute) lower respiratory infection; Q61.3 Polycystic kidney, unspecified; J45.901 Unspecified asthma with (acute) exacerbation; I13.0 Hypertensive heart and chronic kidney disease with heart failure and stage 1 through stage 4 chronic kidney disease, or unspecified chronic kidney disease; N18.9 Chronic kidney disease, unspecified; J44.9 Chronic obstructive pulmonary disease, unspecified; G20 Parkinson's disease; I48.91 Unspecified atrial fibrillation; F12.90 Cannabis use, unspecified, uncomplicated; I50.9 Heart failure, unspecified; Z95.0 Presence of cardiac pacemaker; Z79.01 Long term (current) use of anticoagulants; Z79.899 Other long term (current) drug therapy
CPT/HCPCS: 36415; 71045; 71250; 80053; 81001; 82550; 82553; 83605; 83735; 83880; 84484; 85025; 86140; 87040; 87081; 87086; 87804; 94640; 96361; 96365; 96375; 97116; 99285; J0456; J0696; J2405; J7030; J7060; J7512; J7613; J7620; J7626; Q0092

== ENCOUNTER 2018-03-30 17:48 | Observation (INO) | payer OTHER ==
[~2018-03-30] VITALS: Ht 170.2 cm; Wt 129.7 kg
[~2018-03-30 17:48] MED LIST changes: +DOXY100C9 PO; +METH4TAB3 PO; +OSEL30CA1 PO
[2018-03-30 17:49] VITALS: BP 154/100
--- NOTE | 2018-03-30 17:49 | NUR ---
PT BIBA ALS TO BED 7
--- NOTE | 2018-03-30 18:00 | NUR ---
63Y/M BIBA WITH C/O SOB, PT WAS RECENTLY DISCHARGED FROM [facility] AND RAN OUT OF O2, O2 SAT 98% ON 3 LITERS. PT IS AAOX4, VSS AT THIS TIME, BED DOWN, LOW, LOCKED, BEDRAIL UP X 1, ER MD AWARE AND NOTIFIED OF PT STATUS. PMH: PACEMAKER, BIPOLAR, PARKINSON'S, STENTS, ASTHMA, A-FIB, COPD, HTN, BILATERAL POLYCYSTIC DISEASE NKA
--- NOTE | 2018-03-30 19:40 | NUR ---
PT AMBULATED TO BATHROOM AT THIS TIME.
[2018-03-30 21:02] LABS: BASOPHILS % (AUTO) 0.2 % (0.0-2.0); EOSINOPHILS % (AUTO) 0.4 % (0.0-4.0); HEMATOCRIT 49.6 % (36-52); HEMOGLOBIN 16.3 g/dL (12.0-18.0); LYMPHOCYTES # (AUTO) 0.8 K/uL (2.0-11.5); LYMPHOCYTES % (AUTO) 7.9 % (20.5-51.1); MEAN CORPUSCULAR HEMOGLOBIN 33 pg (27-31); MEAN CORPUSCULAR HGB CONC 33 g/dL (33-37); MEAN CORPUSCULAR VOLUME 99.4 fL (80-94); MONOCYTES # (AUTO) 0.7 K/uL (0.8-1.0); MONOCYTES % (AUTO) 6.6 % (1.7-9.3); NEUTROPHILS # (AUTO) 8.7 K/uL (1.8-7.7); NEUTROPHILS % (AUTO) 84.9 % (42.2-75.2); PLATELET COUNT (AUTO) 187 K/uL (140-450); RED CELL DISTRIBUTION WIDTH 14.9 % (11.6-13.7); WHITE BLOOD COUNT (AUTO) 10.3 K/uL (4.8-10.8)
[2018-03-30 21:30] LABS: ALBUMIN 2.8 g/dL (3.4-5.0); ANION GAP 9.2 (8-16); CARBON DIOXIDE 32.6 mmol/L (21-32); CREATININE 1.4 mg/dL (0.7-1.3); POTASSIUM 4.8 mmol/L (3.5-5.1); TOTAL BILIRUBIN 0.5 mg/dL (0.0-1.0)
--- NOTE | 2018-03-30 22:45 | NUR ---
CALLED DIET FOR FOOD FOR PT.
--- NOTE | 2018-03-30 22:50 | NUR ---
FOOD PROVIDED TO PT, PT IS SITTING UP IN BED EATING.
--- NOTE | 2018-03-31 00:22 | NUR ---
Patient will be admitted to care of Dr. Rosales. [facility] to [facility]. Will go to room . 107-B. Belongings list completed. Report to Mariana TRAN.
[2018-03-31 00:25] VITALS: BP_SYST 149; BP_SYST 152; BP_DIAS 85; BP_DIAS 96
--- NOTE | 2018-03-31 00:25 | NUR ---
ADMITTED A 63M FROM ER, CAME BY MENG ON O23L/NC. O2 SAT 96%. ER NURSE SAID HE WAS ON 3L NC SINCE BROUGHT IN BY AMBULANCE. PT IS MED SURG , FOR OBSERVATION. CAME BACK DUE TO SOB , HE RUN OUT OF O2 ON HIS TANK AT HOME A DAY AFTER HE WAS DC HOME LAST SUNDAY HERE. PT IS AWAKE,ALERT AND ORIENTED X4. WITH NO SOB NOTED. DENIES ANY PAIN NOR DISCOMFORT . SKIN INTACT . WITH HL ON THE LT WRIST G#20. CLEAR AND PATENT. PLAN OF CARE DISCUSSED AND VERBALIZED UNDERSTANDING. BED ON LOWEST POSITION. CALL LIGHT WITHIN EASY REACH. INSTRUCTED TO CALL FOR ANY ASSISTANCE. WILL CONTINUE TO MONITOR.
[2018-03-31] MEDS ORDERED: NITROGLYCERIN 0.4 MG TAB SL SCH (01:15)
--- NOTE | 2018-03-31 02:30 | NUR ---
MADE ROUNDS. PT IS ASLEEP. NO S/S OF ANY RESPIRATORY DISTRESS NOTED.
--- NOTE | 2018-03-31 04:30 | NUR ---
PT SLEEPING WELL. WITH NO SOB NOTED. WILL CONTINUE TO MONITOR.
--- NOTE | 2018-03-31 06:30 | NUR ---
PT ABLE TO SLEEP WELL DURING THE NIGHT. NO SOB NOTED .
--- NOTE | 2018-03-31 07:20 | NUR ---
ENDORSED PT IN STABLE CONDITION TO AM NURSE.
--- NOTE | 2018-03-31 07:21 | NUR ---
RECEIVED REPORT FROM PRODUCT DEVELOPMENT CHEMIST. PT IN BED TALKING ON THE PHONE. NO SOB OR PAIN REPORTED. DISCUSSED PLAN OF CARE WITH PT. PT VERBALIZED UNDERSTANDING. IV IS 20G ON LEFT WRIST PATENT AND INTACT. CURRENTLY SALINE LOCKED. PT STATES ALL NEEDS MET AT THIS TIME. BED IN LOW POSITION, CALL LIGHT WITHIN REACH, FALL RISK SIGNS POSTED. WILL ROUND FREQUENTLY ON PT.
[2018-03-31] MEDS ORDERED: BUDESONIDE 0.25 MG/2 ML NEBU INH SCH (07:30)
[2018-03-31 08:00] VITALS: BP 157/97
[2018-03-31] MEDS ORDERED: FLUoxetine 10 MG CAP PO SCH (09:00)
[2018-03-31] MEDS ORDERED: METOPROLOL SUCCINATE 50 MG TABER PO SCH (09:00)
[2018-03-31] MEDS ORDERED: NON-FORMULARY ITEM (Spironolactone 1 TAB) PO SCH (09:00)
[2018-03-31] MEDS ORDERED: APIXABAN 2.5 MG TAB PO SCH (09:00)
[2018-03-31] MEDS ORDERED: METOPROLOL SUCCINATE 200 MG PO SCH (09:00)
[2018-03-31] MEDS ORDERED: NON-FORMULARY ITEM (Amiodarone HCl (Amiodarone Hcl) 200 MG) PO SCH (09:00)
[2018-03-31] MEDS ORDERED: FUROSEMIDE 20 MG TAB PO SCH (09:00)
[2018-03-31] MEDS ORDERED: NON-FORMULARY ITEM (Apixaban (Eliquis) 5 MG) PO SCH (09:00)
[2018-03-31] MEDS ORDERED: methylPREDNISolone 4 MG TAB PO SCH (09:00)
[2018-03-31] MEDS ORDERED: AMIODARONE 200 MG TAB PO SCH (09:00)
[2018-03-31] MEDS ORDERED: traZODone 50 MG TAB PO SCH (09:00)
[2018-03-31] MEDS ORDERED: DILTIAZEM 120 MG CAPER PO SCH (09:00)
[2018-03-31] MEDS ORDERED: DOXYCYCLINE 100 MG CAP PO SCH (09:00)
[2018-03-31] MEDS ORDERED: METHYLPREDNISOLONE 4 MG PO SCH (09:00)
[2018-03-31] MEDS ORDERED: BENAZEPRIL 20 MG TAB PO SCH (09:00)
[2018-03-31] MEDS ORDERED: ARIPiprazole 10 MG TAB PO SCH (09:00)
[2018-03-31] MEDS ORDERED: DIVALPROEX 500 MG TABEC PO SCH (09:00)
[2018-03-31] MEDS ORDERED: OSELTAMIVIR PHOSPHATE 30 MG PO SCH (09:00)
[2018-03-31] MEDS ORDERED: NON-FORMULARY ITEM (Trazodone HCl 100 MG) PO SCH (09:00)
[2018-03-31] MEDS ORDERED: SPIRONOLACTONE 25 MG TAB PO SCH (09:00)
--- NOTE | 2018-03-31 09:57 | NUR ---
ADMINISTERED MORNING MEDS TO PT. PT TOLERATED MEDS WELL. PT REFUSED SEVERAL SCHEDULED MEDICATIONS BECUASE HE STATES THAT THE DOSAGE ON SOME OF THE MEDICATIONS WAS RECENTLY CHANGED BY HIS MACHINE ICER. ALL OTHER NEEDS MET AT THIS TIME. WILL ROUND FREQUENTLY ON PT. BED IN LOW POSITION, CALL LIGHT WITHIN REACH
[2018-03-31] MEDS: CARBIDOPA/LEVODOPA 25/100 MG 1 TAB PO SCH ×2 (10:18→13:00)
--- NOTE | 2018-03-31 11:40 | NUR ---
SPOKE WITH LIAT WITH [facility] [phone], RECIEVED PHONE NUMBER FOR [facility], , WILL CALL [facility] TO COORDINATE O2 DELIVERY AND DISCHARGE HOME.
--- NOTE | 2018-03-31 11:42 | NUR ---
SPOKE WITH CHARLES COBB, REP, FROM [facility]GEN [facility]. SHE STATED THAT A NEW ORDER WILL BE PUT IN FOR OXYGEN TANK AND SUPPLIES TO BE DELIVERED HERE TO WHEELER PRIOR TO PT DISCHARGE. [facility] NUMBER IS
--- NOTE | 2018-03-31 14:50 | NUR ---
PT DISCHARGED HOME FOR SELF-CARE. PT DISCHARGE PAPERWORK EXPLAINED TO PT. PT VERBALIZED UNDERSTANDING OF TEACHING AND SIGNED ALL PAPERWORK. IV REMOVED WITH TIP INTACT. WRISTBANDS REMOVED AND PLACED IN SHREDDER. ALL PERSONAL BELONGINGS WERE TAKEN WITH PT. PT LEFT IN STABLE CONDITION. SISTER DROVE PT HOME. O2 DELIVERY SERVICE DELIVERED O2 AND EQUIPMENT TO THE HOSPITAL TO ENSURE THAT PT HAD SUPPLIES UPON DISCHARGE. ALL NEEDS MET AT DISCHARGE.
[2018-03-31] MEDS ORDERED: ATORVASTATIN 20 MG TAB PO SCH (21:00)
== END 2018-03-31 14:50 | disposition home or self-care (01) ==
LOC: MED 17:48 → MTU 23:52
PROVIDERS: ADMIT Hospitalist; ATTEND Hospitalist
DX: J96.01 Acute respiratory failure with hypoxia (principal); J18.9 Pneumonia, unspecified organism; I48.91 Unspecified atrial fibrillation; I50.32 Chronic diastolic (congestive) heart failure; Q61.3 Polycystic kidney, unspecified; J45.909 Unspecified asthma, uncomplicated; G20 Parkinson's disease; F12.90 Cannabis use, unspecified, uncomplicated; Z99.81 Dependence on supplemental oxygen
CPT/HCPCS: 36415; 71045; 80053; 85025; 87081; 94640; 94760; 99285; G0378; J7509; J7626; Q0092

== ENCOUNTER 2019-01-08 12:25 | Emergency (ER) | payer OTHER ==
[~2019-01-08] VITALS: Ht 170.2 cm; Wt 142.9 kg
--- NOTE | 2019-01-08 12:25 | NUR ---
Patient BIBA ALS, transferred to bed 7. RN evaluating patient at bedside.
--- NOTE | 2019-01-08 12:29 | NUR ---
Dr. Acevedo is evaluating the patient at bedside.
[2019-01-08 12:46] VITALS: BP 149/89
--- NOTE | 2019-01-08 12:57 | NUR ---
solar energy technician at bedside.
[2019-01-08 13:15] LABS: HEMATOCRIT 51.8 % (36-52); HEMOGLOBIN 17.3 g/dL (12.0-18.0); MEAN CORPUSCULAR HEMOGLOBIN 33 pg (27-31); MEAN CORPUSCULAR HGB CONC 33 g/dL (33-37); MEAN CORPUSCULAR VOLUME 98.3 fL (80-94); PLATELET COUNT (AUTO) 189 K/uL (140-450); RED BLOOD CELL COUNT(AUTO) 5.28 MIL/uL (4.20-6.10); RED CELL DISTRIBUTION WIDTH 15.4 % (11.6-13.7)
[2019-01-08 13:40] LABS: PROTHROMBIN TIME 11.2 secs (10.8-13.4)
[2019-01-08 13:45] LABS: ANION GAP 15.2 (8-16); CREATININE 1.3 mg/dL (0.7-1.3); POTASSIUM 5.2 mmol/L (3.5-5.1)
[2019-01-08 13:51] LABS: ALBUMIN 3.2 g/dL (3.4-5.0); TOTAL BILIRUBIN 0.7 mg/dL (0.0-1.0)
[2019-01-08] MEDS ORDERED: MAG SULF 2000 MG/WATER PREMIX 50 ML IV ONE (14:00)
[2019-01-08] MEDS ORDERED: ALBUTEROL 0.083% 2.5 MG/3 ML NEBU INH ONE ×2 (14:00→17:40)
[2019-01-08] MEDS ORDERED: methylPREDNISolone SS 125 MG/2 ML VIAL IVP ONE (14:00)
[2019-01-08] MEDS ORDERED: IPRATROPIUM 0.02% 0.5 MG/2.5 ML NEBU INH ONE (14:00)
[2019-01-08 14:23] LABS: BASOPHILS % (MANUAL) 0 % (0-2); EOSINOPHILS % (MANUAL) 0 % (0-4); LYMPHOCYTES % (MANUAL) 9 % (20-46); MONOCYTES % (MANUAL) 17 % (5-12)
--- NOTE | 2019-01-08 14:33 | NUR ---
Respiratory Therapist at bedside for respiratory intervention.
--- NOTE | 2019-01-08 17:55 | NUR ---
STARTED PT ON 1 HR TX. DUE TO SHIFT CHANGE NOC SHIFT WILL FINISH TX. REPORT GIVEN TO RT TERELL.
--- NOTE | 2019-01-08 20:20 | NUR ---
INFORMED PT REGARDING TRANSFER TO [facility]. PT GAVE VERBAL CONSENT FOR TRANSFER.
--- NOTE | 2019-01-08 20:28 | NUR ---
[facility] ON SEEN TO TX PT TO [facility]DON[facility]
[2019-01-08 20:30] VITALS: BP 145/77
--- NOTE | 2019-01-08 20:43 | NUR ---
SPOKE WITH ERYN TRAN FROM [facility]. GAVE REPORT REGARDING PT.
--- NOTE | 2019-01-08 20:50 | NUR ---
PT TRANSFERRED TO [facility]. REPORT GIVEN. PT CARE TRANSFERRED TO [facility].
--- NOTE | 2019-01-13 13:59 | NUR ---
Late entry. Confirmed with RN that Mag IV started at 1405 and completed at 1605
== END 2019-01-08 20:50 | disposition short-term general hospital (02) ==
LOC: MED 12:25
DX: J44.1 Chronic obstructive pulmonary disease with (acute) exacerbation (principal); R00.0 Tachycardia, unspecified; I48.91 Unspecified atrial fibrillation
CPT/HCPCS: 36415; 36600; 71045; 80053; 82803; 83880; 84484; 85025; 85610; 85730; 87804; 93005; 94640; 94760; 96365; 96375; 96376; 99285; J2930; J3475; J7613; J7644; Q0092; 81002; 81025; 96374